=== PATIENT | male | born 1955 | race Caucasian/White ===

== ENCOUNTER 2018-06-02 17:53 | Inpatient (IN) | payer MEDICARE, BC ==
[2018-06-02 19:27] LABS: Basophils # (A) 0.1 k/uL (0-0.2); Basophils % (A) 1 %; Eosinophils # (A) 0.2 k/uL (0-0.7); Eosinophils % (A) 2 %; HCT 47.9 % (39.0-53.0); HGB 16.2 gm/dL (13.0-17.5); Lymphocytes # (A) 2.5 k/uL (1.0-4.8); Lymphocytes % (A) 23 %; MCH 33.4 pg (25.0-35.0); MCHC 33.8 g/dL (31.0-37.0); MCV 98.8 fL (80.0-100.0); Mean Platelet Volume 7.4; Monocytes # (A) 0.7 k/uL (0-1.0); Monocytes % (A) 6 %; Neutrophils # (A) 7.4 k/uL (1.3-7.7); Neutrophils % (A) 67 %; Platelet Count 205 k/uL (150-450); RBC 4.85 m/uL (4.30-5.90); RDW 12.1 % (11.5-15.5); WBC 11.1 k/uL (3.8-10.6)
[2018-06-02 19:36] LABS: Appearance,Urine Clear (Clear); Bilirubin,Urine Negative (Negative); Blood,Urine Negative (Negative); Color,Urine Yellow; Glucose,Urine (UA) Negative (Negative); Ketones,Urine Negative (Negative); Leukocyte Esterase,Urine Negative (Negative); Nitrite,Urine Negative (Negative); Protein,Urine Negative (Negative); Specific Gravity,Urine 1.014 (1.001-1.035); Urobilinogen,Urine <2.0 mg/dL (<2.0)
[2018-06-02 19:41] LABS: ALT 31 U/L (21-72); AST 32 U/L (17-59); Albumin 4.2 g/dL (3.5-5.0); Alkaline Phosphatase 39 U/L (38-126); Anion Gap 7 mmol/L; Blood Urea Nitrogen 14 mg/dL (9-20); Calcium 9.8 mg/dL (8.4-10.2); Carbon Dioxide 27 mmol/L (22-30); Chloride 104 mmol/L (98-107); Glucose 89 mg/dL (74-99); Potassium 4.5 mmol/L (3.5-5.1); Sodium 138 mmol/L (137-145); Total Bilirubin 0.7 mg/dL (0.2-1.3); Total Protein 7.4 g/dL (6.3-8.2)
--- NOTE | 2018-06-02 19:48 | ED ---
General Adult HPI - General Chief complaint: Extremity Problem,Nontraumatic Stated complaint: leg pain Time Seen by Provider: 06/02/18 18:04 Source: patient, EMS, RN notes reviewed Mode of arrival: EMS Limitations: no limitations - History of Present Illness Initial comments: 63-year-old male with a past medical history of prostate disorder, hypertension presents to the emergency department for a chief complaint of right lower extremity pain 2.5 months. Patient states this has been ongoing. He states this started in his lower back months ago and progressed to his right hip. Patient states he has noticed pain in his hip he went to [facility] and had a negative CAT scan done of the right hip at that time. Patient states that the pain has progressed into now his right leg, denies pain in the back or hip. He states the pain is in the posterior thigh. He describes the pain as a sharp pain radiating down his leg. He states when he stands too long he has pins and needles in his right leg. Patient states he saw Dr. Helm his primary today and was told to go to the emergency department for admission. He was told he should be admitted for an EMG and inpatient MRI. Patient states he could not follow up outpatient because he had significant pain when transporting to Dr. Pompa's office. He denies any bladder or bowel changes. He denies any fevers or chills. He denies weakness in the lower extremities. Patient has no other complaints at this time including shortness of breath, chest pain, abdominal pain, nausea or vomiting, headache, or visual changes. - Related Data Home Medications Medication Instructions Recorded Confirmed Atenolol [Tenormin] 50 mg PO DAILY 06/02/18 06/02/18 Cyclobenzaprine [Flexeril] 10 mg PO Q12H 06/02/18 06/02/18 Fluticasone Nasal [place] [Flonase 1 spray EA NOSTRIL DAILY 06/02/18 06/02/18 Nasal [place]] Gabapentin [Neurontin] 300 mg PO TID 06/02/18 06/02/18 HYDROcodone/APAP 7.5-325MG [[place] 2 tab PO Q8H PRN 06/02/18 06/02/18 7.5-325] Lisinopril [Zestril] 10 mg PO DAILY 06/02/18 06/02/18 Methocarbamol [Robaxin] 1,000 mg PO QID 06/02/18 06/02/18 Naloxone HCl [Narcan] 4 mg NASAL ONCE PRN 06/02/18 06/02/18 amLODIPine [Norvasc] 5 mg PO DAILY 06/02/18 06/02/18 fentaNYL 25MCG/HR PATCH [Duragesic 25 mcg TRANSDERM Q72H 06/02/18 06/02/18 25MCG/HR] Allergies Allergy/AdvReac Type Severity Reaction Status Date / Time Penicillins Allergy Unknown Verified 06/02/18 18:59 Review of Systems ROS Statement: Those systems with pertinent positive or pertinent negative responses have been documented in the HPI. ROS Other: All systems not noted in ROS Statement are negative. Past Medical History Past Medical History: Hypertension, Prostate Disorder Additional Past Medical History / Comment(s): diverticulits, insomnia, lower back pain, sialoadenitis, History of Any Multi-Drug Resistant Organisms: None Reported Past Surgical History: Back Surgery, Hernia Repair, Orthopedic Surgery, Tonsillectomy Additional Past Surgical History / Comment(s): cataracts Past Psychological History: No Psychological Hx Reported Smoking Status: Current every day smoker Past Alcohol Use History: Occasional Past Drug Use History: Marijuana General Exam Limitations: no limitations General appearance: alert, in no apparent distress Head exam: Present: atraumatic, normocephalic, normal inspection Eye exam: Present: normal appearance, PERRL, EOMI. Absent: scleral icterus, conjunctival injection, periorbital swelling ENT exam: Present: normal exam, mucous membranes moist Neck exam: Present: normal inspection, full ROM. Absent: tenderness, meningismus, lymphadenopathy Respiratory exam: Present: normal lung sounds bilaterally. Absent: respiratory distress, wheezes, rales, rhonchi, stridor Cardiovascular Exam: Present: regular rate, normal rhythm, normal heart sounds. Absent: systolic murmur, diastolic murmur, rubs, gallop, clicks GI/Abdominal exam: Present: soft, normal bowel sounds. Absent: distended, tenderness, guarding, rebound, rigid Extremities exam: Present: full ROM (Full range motion of the right hip and knee ), normal capillary refill (Happily refill less than 2 seconds and DP pulse 2+ in the right lower extremity), other (Incision intact in the right lower extremity). Absent: tenderness (No significant tenderness in the right lower extremity) Back exam: Absent: vertebral tenderness (No significant lumbar tenderness) Neurological exam: Present: alert, oriented X3, CN II-XII intact Psychiatric exam: Present: normal affect, normal mood Course Vital Signs 06/02/18 06/02/18 17:56 19:14 Temperature 97.0 F L Pulse Rate 58 L 62 Respiratory 18 18 Rate Blood Pressure 153/64 142/70 O2 Sat by Pulse 98 98 Oximetry Medical Decision Making - Medical Decision Making 63-year-old male presents to the emergency department for chief complaint of right lower extremity pain. According to Patient, he was sent in by Dr. Pompa for admission and further evaluation with inpatient EMG and MRI. Neurovascular is intact in the right lower extremity. Patient has full range motion of the right lower extremity. He did ambulate to the bathroom while here in the emergency department. He denies bladder or bowel changes, numbness of the lower extremities. He denies significant back pain at this time. CBC shows a white count of 11.1. CMP and urine unremarkable. Patient will be admitted to Dr. Castro for further evaluation which patient and family member agree with. - Lab Data Result diagrams: 06/02/18 19:08 06/02/18 19:08 Lab Results 06/02/18 06/02/18 06/02/18 Range/Units 19:08 19:08 19:08 WBC 11.1 H (3.8-10.6) k/uL RBC 4.85 (4.30-5.90) m/uL Hgb 16.2 (13.0-17.5) gm/dL Hct 47.9 (39.0-53.0) % MCV 98.8 (80.0-100.0) fL MCH 33.4 (25.0-35.0) pg MCHC 33.8 (31.0-37.0) g/dL RDW 12.1 (11.5-15.5) % Plt Count 205 (150-450) k/uL Neutrophils % 67 % Lymphocytes % 23 % Monocytes % 6 % Eosinophils % 2 % Basophils % 1 % Neutrophils # 7.4 (1.3-7.7) k/uL Lymphocytes # 2.5 (1.0-4.8) k/uL Monocytes # 0.7 (0-1.0) k/uL Eosinophils # 0.2 (0-0.7) k/uL Basophils # 0.1 (0-0.2) k/uL Sodium 138 (137-145) mmol/L Potassium 4.5 (3.5-5.1) mmol/L Chloride 104 (98-107) mmol/L Carbon Dioxide 27 (22-30) mmol/L Anion Gap 7 mmol/L BUN 14 (9-20) mg/dL Creatinine 0.70 (0.66-1.25) mg/dL Est GFR (CKD-EPI)AfAm >90 (>60 ml/min/1.73 sqM) Est GFR (CKD-EPI)NonAf >90 (>60 ml/min/1.73 sqM) Glucose 89 (74-99) mg/dL Calcium 9.8 (8.4-10.2) mg/dL Total Bilirubin 0.7 (0.2-1.3) mg/dL AST 32 (17-59) U/L ALT 31 (21-72) U/L Alkaline Phosphatase 39 (38-126) U/L Total Protein 7.4 (6.3-8.2) g/dL Albumin 4.2 (3.5-5.0) g/dL Urine Color Yellow Urine Appearance Clear (Clear) Urine pH 6.0 (5.0-8.0) Ur Specific [place] 1.014 (1.001-1.035) Urine Protein Negative (Negative) Urine Glucose (UA) Negative (Negative) Urine Ketones Negative (Negative) Urine Blood Negative (Negative) Urine Nitrite Negative (Negative) Urine Bilirubin Negative (Negative) Urine Urobilinogen <2.0 (<2.0) mg/dL Ur Leukocyte Esterase Negative (Negative) Disposition Clinical Impression: Right leg pain, Intractable pain Disposition: ADMITTED IP TO THIS HOSP Condition: Good Is patient prescribed a controlled substance at d/c from ED?: No Referrals: Navid Pompa MD [Primary Care Provider] - 1-2 days Time of Disposition: 19:48
[2018-06-02] MEDS ORDERED: MORPHINE SULFATE 4 MG/ML SYRINGE IVP STA (20:35)
[2018-06-02] MEDS ORDERED: NALOXONE 0.4 MG/ML 1 ML VIAL IV PRN (20:36)
[2018-06-02] MEDS ORDERED: ACETAMINOPHEN TAB 325 MG TAB PO PRN (20:36)
[2018-06-02] MEDS ORDERED: FLUTICASONE 50MCG/SPRAY NASAL 16GM EA NOSTRIL PRN (22:52)
[2018-06-02] MEDS: NICOTINE 21MG/24HR PATCH TRANSDERM SCH (23:10)
[2018-06-02] MEDS: SODIUM CHLORIDE 0.9% 1,000 ML IV SCH (23:10)
[2018-06-02] MEDS: HYDROmorphone 1 MG/ML 1 ML SYRINGE IVP PRN (23:41)
[2018-06-02] MEDS: METHOCARBAMOL 500 MG TAB PO PRN (23:58)
[2018-06-02] MEDS: methylPREDNISolone SOD SUCCI 40 MG/ML 1 ML VIAL IV SCH (23:58)
[2018-06-03] MEDS: NAPROXEN 250 MG TAB PO SCH ×3 (00:49→20:05)
[2018-06-03] MEDS: HYDROcodone/APAP 7.5-325MG 1 EACH TAB PO PRN ×3 (01:36→19:18)
[2018-06-03] MEDS: HYDROmorphone 1 MG/ML 1 ML SYRINGE IVP PRN ×6 (03:24→23:45)
--- NOTE | 2018-06-03 05:05 | HP ---
HISTORY AND PHYSICAL DATE OF ADMISSION: 06/02/2018 DATE OF SERVICE: 06/02/2018 PRESENTING COMPLAINT: Low back pain. HISTORY OF PRESENTING COMPLAINT: This is a 63-year-old patient of Dr. Pompa. Chronic stable medical conditions include hypertension, diverticulosis, insomnia. The patient has had low back pain problems several years. About 15 years ago, the patient did have a surgery for diskectomy that did not go well and patient has been having pain for that. The patient has been managed with medications by Dr. Pompa. Two and one half months ago patient's pain became more severe and started going down his right leg and progressed to get more severe. Hence patient presented to the hospital. The patient gets spasms and tautness of the back muscles and the right thigh. There is no involvement of bladder or the urine. Some trouble with walking. Hence patient was sent in for further workup. No fever. No chills. No recent back injury. REVIEW OF SYSTEMS: CONSTITUTIONAL: None. HEENT none. RESPIRATORY: Occasional shortness of breath. CARDIOVASCULAR none. GASTROINTESTINAL: None. GENITOURINARY none. MUSCULOSKELETAL as above. DERMATOLOGICAL, HEMATOLOGIC, LYMPHATIC: none. PSYCHIATRY none. NEUROLOGICAL none. PAST MEDICAL HISTORY: Asthma as a child, hypertension, diverticulitis, insomnia, lower back DJD, squamous cell cancer, hiatal hernia, C diff. PAST SURGICAL HISTORY: Back surgery 15 years ago, hernia repair, cataract, colonoscopy with polypectomy, umbilical hernia repair. Knee repair, skin cancer removed. SOCIAL HISTORY: The patient smoked close to 50 years, averaged about a pack a day, now down to half a pack a day. Does use marijuana. . FAMILY HISTORY: Of hypertension. HOME MEDICATIONS: 1. Narcan 4 mg p.r.n. 2. Robaxin 1000 mg p.o. q.i.d. 3. Zestril 10 mg p.o. daily. 4. Barre 7.5, 2 tablets p.o. q.8h p.r.n. 5. Neurontin 300 mg t.i.d. 6. Duragesic patch 25 q.72h hours. 7. Norvasc 5 mg p.o. daily. 8. Flexeril 10 mg p.o. q.12. 9. Tenormin 50 mg p.o. daily. ALLERGIES: PENICILLIN. EXAMINATION: VITAL SIGNS: Temp 97, pulse 58, respiration 18, blood pressure 153/64, pulse ox 98% on room air. GENERAL APPEARANCE: Average build, lying in bed, awake. EYES: Pupils equal. Conjunctivae normal. HEENT: External appearance of nose and ears normal. Oral cavity normal. NECK: JVD not raised. Mass not palpable. RESPIRATORY EFFORT: Normal. LUNGS: Diminished breath sounds. CARDIOVASCULAR: 1st and 2nd sounds, no edema. ABDOMEN: Soft, nontender. Liver and spleen not palpable. LYMPHATICS: No lymph nodes palpable in the neck and axilla. PSYCHIATRY: Alert and oriented x3. Mood and affect normal. NEUROLOGICAL: Pupils equal. Cranial nerves grossly intact. Reflexes in both the lower extremities equal, sensation grossly preserved. INVESTIGATIONS: White count 11.1, hemoglobin 16.2, potassium 4.5. UA negative. ASSESSMENT: 1. Acute on chronic lower back pain in a patient who had surgery 15 years ago, did not go well diskectomy, for two and one half months pain is much more severe with radiculopathic symptoms. There is no involvement of the bladder or the bowel. The patient did state that the last MRI probably 2 years ago did show diffuse disease at multiple levels. Most likely these are typically not amenable to surgery and have to be managed medically. We will get an MRI to check on the status. 2. The patient has got weakness in the ulnar distribution of the right hand. Being a smoker, we will rule out something like a Pancoast tumor. 3. Essential hypertension. 4. Chronic insomnia. PLAN: At this point, we will do a MRI of the lumbar spine, MRI of the cervical spine and CT scan of the chest with contrast. Home medications will be continued. Dr. Ulloa from [facility] has been consulted. We will also add a heating pad and IV Solu- Medrol. Care was discussed with the patient. Questions were answered. Copy to Dr. Pompa. MMLURDESL / CATALINAN: [id number] /
[2018-06-03] MEDS: SODIUM CHLORIDE 0.9% 1,000 ML IV SCH ×2 (06:24→07:39)
[2018-06-03] MEDS: METHOCARBAMOL 500 MG TAB PO PRN ×2 (06:24→17:19)
[2018-06-03] MEDS: methylPREDNISolone SOD SUCCI 40 MG/ML 1 ML VIAL IV SCH ×3 (07:37→23:53)
[2018-06-03] MEDS: ENOXAPARIN 40 MG/0.4 ML SYRINGE SQ SCH (07:37)
[2018-06-03] MEDS: NICOTINE 21MG/24HR PATCH TRANSDERM SCH (07:38)
[2018-06-03] MEDS: ATENOLOL 50 MG TAB PO SCH (07:39)
[2018-06-03] MEDS: LISINOPRIL 10 MG TAB PO SCH (07:39)
[2018-06-03] MEDS: GABAPENTIN 300 MG CAP PO SCH ×3 (07:39→21:37)
[2018-06-03] MEDS: amLODIPine 5 MG TAB PO SCH (07:39)
--- NOTE | 2018-06-03 12:43 | MR ---
EXAMINATION TYPE: MR begum/shellie wo con DATE OF EXAM: 06/03/2018 COMPARISON: 12/16/2012 HISTORY: r arm weakness in ulnar distribution TECHNIQUE: T1 and T2 axial and sagittal images of the lumbar spine are submitted. FINDINGS: There is no abnormal signal seen within the visualized spinal cord or paraspinal soft tissu es. Simple appearing renal cysts are noted there is thickening of the adrenal glands. Could not exclu de a complicated cyst involving the lower pole the left kidney. 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 At T12-L1 there is left paracentral broad-based disc bulging. No Canal stenosis. Neural foramina anant in patent. At L1-2 there is mild hypertrophic change of the facets. No disc herniation or canal stenosis. No for aminal encroachment. At L2-3 there is no disc herniation or canal stenosis. There is hyperdensity seen within the spinal c anal and T1 noncontrast imaging likely related to the filum terminale lipoma. Findings stable. At L3-4 there is degenerative disc disease with diffuse broad-based disc bulging and hypertrophy face ts and ligamentum flavum. Findings are mildly progressed suggestive of mild central stenosis. At L4-5 there is a broad-based disc bulging or protrusion with hypertrophic change of the facets and ligamentum flavum. There is bilateral foraminal encroachment. Anterior compression of the thecal sac. Mild central stenosis. At L5-S1 there is degenerative disc disease with facet arthropathy. There now appears to be a focal d isc herniation with extrusion extending posterior to the S1 segment of the right resulting in right-s ided nerve root compression. Is a new finding relative to the prior exam. 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 IMPRESSION: 1. There is a new right paracentral focal disc herniation with extrusion L5-S1 and compression of the right nerve root. Disc material extends posterior to the S1 vertebral segment. Correlation with post contrast imaging could be obtained for confirmation. 2. Multilevel degenerative disc disease with multilevel facet arthropathy and disc bulging resulting in multilevel foraminal encroachment and canal stenosis as discussed above. 3. A complicated cyst involving the lower pole the left kidney for which ultrasound or CT scan is sug gested. EXAMINATION TYPE: MR begum/shellie wo con DATE OF EXAM: 06/03/2018 COMPARISON: 12/16/2012 HISTORY: r arm weakness in ulnar distribution TECHNIQUE: T1 sagittal and coronal, T2 sagittal, and gradient echo axial views of the cervical spine are submitted. FINDINGS: The cranial cervical junction is preserved. There is no abnormal signal seen within the sp inal cord or paraspinal soft tissues. At C2-3 there is facet arthropathy but no canal stenosis or foraminal encroachment. No disc herniatio n. At C3-4 there is mild degenerative disc disease and uncovertebral joint hypertrophy. There is mild bi lateral foraminal encroachment with facet arthropathy but no focal herniation. At C4-5 there is degenerative disc disease with facet arthropathy and uncovertebral joint hypertrophy . Mild left foraminal encroachment. No canal stenosis or focal herniation. At C5-6 there is degenerative disc disease with bilateral uncovertebral joint hypertrophy greater on the right with moderate right foraminal encroachment and mild left foraminal encroachment. Findings a re similar to the prior exam. Mild central disc bulging is stable. At C6-7 there is severe degenerative disc disease with discogenic marrow changes which are slightly p rogressed from the prior exam. There is diffuse central disc bulging or small protrusion with no evid ence of canal stenosis. Facet arthropathy and uncovertebral joint hypertrophy result in moderate to s evere bilateral foraminal encroachment. At C7-T1 there is uncovertebral joint hypertrophy on the left but no canal stenosis or foraminal encr oachment. There is degenerative disc disease. Incidental note made of a partially empty sella turcica. IMPRESSION: 1. Multilevel degenerative disc disease with mild progression at C5-C6. Foraminal encroachment and d isc bulging as discussed above. 2. Stable disc bulging C6-C7 capped by osteophytic spur but no definite canal stenosis. Multilevel fo raminal encroachment as discussed above.
--- NOTE | 2018-06-03 12:47 | CT ---
EXAMINATION TYPE: CT chest w con DATE OF EXAM: 06/03/2018 COMPARISON: None HISTORY: Hx of smoking, r/o pancoast tumor CT DLP: 378.4 mGycm, Automated exposure control for dose reduction was used. CONTRAST: Performed injected with 100 mL of Isovue 300. TECHNIQUE: Axial images were obtained at 5 mm thick sections. Reconstructed images are reviewed on [employer] computer in the coronal plane. FINDINGS: Portion of the thyroid visualized is normal. No suspicious lung nodules or focal infiltrates are present. Specifically, no suspicious scarring or significant thickening at the lung apices is evident suggest Pancoast tumor. There is a small area of apparent scarring along the left major fissure. Series 4 image 25. This measures 0.7 cm. This can be followed. There is a tiny 0.3 cm density within the right middle lobe. Series 4 image 30 there is a 0.4 cm faint density within the right middle lobe. Series 4 image 38. A 0.4 cm subtle densities withi n the lingula. Series 4 image 46. No enlarged mediastinal or hilar adenopathy is evident. The ascending aorta diameter at the level o f the main pulmonary artery is 3.4 cm. The main pulmonary artery diameter at the bifurcation is 2.[address] sections are obtained through the upper abdomen. Abdomen is essentially unremarkable. IMPRESSIONS: 1. Few small areas of pneumonitis change or tiny nodules. Recommend follow-up CT chest in 6 months. 2. No suspicious changes to suggest Pancoast tumor.
[2018-06-03] MEDS ORDERED: LACTULOSE 20 GM/30 ML CUP PO ONE (13:44)
[2018-06-03] MEDS: SENNOSIDES-DOCUSATE SODIUM 1 EACH TAB PO SCH (13:59)
--- NOTE | 2018-06-03 17:07 | P.CNOR ---
History of Present Illness - [facility] Consult date: 06/03/18 Requesting physician: aCm Florez Consult reason: low back pain, other (Right lower extremity radiculopathy) History of present illness: Patient is a very pleasant 63-year-old male who is seen and examined at the bedside for consultation placed for right lower extremity radiculopathy. Patient states with the past 2-1/2 months he has had pain in the lumbar spine radiating towards the right posterior hip. He presented to [facility] for further evaluation approximately 2 months ago. He states imaging of his lumbar spine and right hip were taken at that time without evidence of significant change to his lumbar spine or evidence of fracture and his right hip. Since that time he has continued to deal with his pain. He feels his pain is progressing is now radiating down the right posterior thigh, to the calf , and towards the foot. He has significant difficulty with sitting and ambulation. He is unable to stand longer than 10 minutes as it causes severe pain down the right lower extremity. He does have a history of previous lumbar surgical intervention of a laminectomy and decompression performed [address] Greer. He states at that time he did not have significant relief of his symptoms following surgical intervention. Over the years he has had treatment with Dr. Mckeon in pain management and has undergone epidural injections. These injections do provide relief of symptoms for approximately 11 days. He denies any recent injuries. He denies any lower extremity weakness bilaterally. He denies any left lower extremity radiculopathy. He is been following was primary care provider. He states he has been taking Solway and using a fentanyl patch without significant improvement of symptoms. Presented to the hospital yesterday for admittance after recommendation by his primary care provider. Nursing states he is currently scheduled to have an MRI of the lumbar spine today as well as a CT of the chest. Patient states he is unsure why he is having a CT performed. CT order states CT to rule out Pancoast tumor and the patient is a smoker. Patient states he has lost weight over the past few weeks but feels this is due to his inability to ambulate and take care of himself. He states he took a shower today which was significantly difficult for him. He states he is been also past 2 weeks lying in bed. Patient is currently receiving Solu-Medrol IV and does not feel his symptoms have significantly changed since his admission. Patient states at the bedside is expecting to be seen and examined by pain management as this was discussed with him. . Past Medical History Past Medical History: Asthma, Cancer, Hypertension Additional Past Medical History / Comment(s): asthma as child,diverticulits, when younger had insomnia, lower back pain, ddd, hc c-diff 2011 or 2012 in [facility] ,past squamous cell skin ca(removed), hiatal hernia /past gerd but changed diet added fiber and no longer has problem,"has numbness rt hand 4th and 5th digit and if stands too long -rt leg gets pins/needles and numbness History of Any Multi-Drug Resistant Organisms: C-DIFF Year Discovered:: 2005 or 2006 in [facility] MDRO Source:: stool Past Surgical History: Back Surgery, Hernia Repair, Orthopedic Surgery, Tonsillectomy Additional Past Surgical History / Comment(s): cataracts, colonoscopy/ polypectomt(benign), umb hernia repair, knee repair (pt unsure which knee), wisdom teeth extracted, skin ca removed Past Anesthesia/Blood Transfusion Reactions: Previous Problems w/ Anesthesia Additional Past Anesthesia/Blood Transfusion Reaction / Comm: after one sx needed and idc forawhile Smoking Status: Current every day smoker - Past Family History Father Family Medical History: Hypertension Additional Family Medical History / Comment(s): had maleria when in [facility] Mother Family Medical History: Cancer, Dialysis, Renal Disease Additional Family Medical History / Comment(s): esrd/dialysis and liver cancer Medications and Allergies Home Medications Medication Instructions Recorded Confirmed Type Atenolol [Tenormin] 50 mg PO DAILY 06/02/18 06/02/18 History Cyclobenzaprine [Flexeril] 10 mg PO Q12H 06/02/18 06/02/18 History Fluticasone Nasal [place] [Flonase 1 spray EA NOSTRIL DAILY 06/02/18 06/02/18 History Nasal [place]] Gabapentin [Neurontin] 300 mg PO TID 06/02/18 06/02/18 History HYDROcodone/APAP 7.5-325MG [[place] 2 tab PO Q8H PRN 06/02/18 06/02/18 History 7.5-325] Lisinopril [Zestril] 10 mg PO DAILY 06/02/18 06/02/18 History Methocarbamol [Robaxin] 1,000 mg PO QID 06/02/18 06/02/18 History Naloxone HCl [Narcan] 4 mg NASAL ONCE PRN 06/02/18 06/02/18 History amLODIPine [Norvasc] 5 mg PO DAILY 06/02/18 06/02/18 History fentaNYL 25MCG/HR PATCH [Duragesic 25 mcg TRANSDERM Q72H 06/02/18 06/02/18 History 25MCG/HR] Allergies Allergy/AdvReac Type Severity Reaction Status Date / Time Penicillins Allergy Unknown Verified 06/02/18 18:59 Physical Examination Physical exam: Patient is awake, alert, and oriented 3 Vital signs stable Good chest excursion with deep inspiration and expiration Abdomen soft nontender Examination of lumbar spine reveals skin is intact with no abrasions, lacerations, or bruises; no erythema, purulence or signs of infection Evidence of a well-healed incision along the midline of the lower lumbar spine No significant significant pain with palpation of the lumbar spine Dorsiflexion, plantarflexion, and extensor hallucis longus positive sustained bilaterally Lower extremity strength 5/5 bilaterally No lower extremity hyperreflexia bilaterally Straight leg test negative bilateral lower extremities Negative Lasegue's test bilaterally No signs or symptoms of DVT; no calf pain No pain with internal and external rotation of the hips bilaterally Neurovascularly intact Chronic skin changes of the bilateral feet Results - Labs Labs: Abnormal Lab Results - Last 24 Hours (Table) 06/02/18 Range/Units 19:08 WBC 11.1 H (3.8-10.6) k/uL H & H 06/02/18 Range/Units 19:08 Hgb 16.2 (13.0-17.5) gm/dL Hct 47.9 (39.0-53.0) % Result Diagrams: 06/02/18 19:08 06/02/18 19:08 Assessment and Plan Assessment: Assessment: Right lower extremity radiculopathy Inability to ambulate due to pain Low back pain Current smoker History of previous laminectomy decompression performed 15 years ago History of hypertension (1) Lumbar back pain with radiculopathy affecting right lower extremity Current Visit: Yes Status: Acute Code(s): M54.16 - RADICULOPATHY, LUMBAR REGION SNOMED Code(s): 734930224 (2) Unable to ambulate Current Visit: Yes Status: Acute Code(s): R26.2 - DIFFICULTY IN WALKING, NOT ELSEWHERE CLASSIFIED SNOMED Code(s): 251359220 (3) Current smoker Current Visit: Yes Status: Acute Code(s): F17.200 - NICOTINE DEPENDENCE, UNSPECIFIED, UNCOMPLICATED SNOMED Code(s): 53688375 (4) History of hypertension Current Visit: Yes Status: Acute Code(s): Z86.79 - PERSONAL HISTORY OF OTHER DISEASES OF THE CIRCULATORY SYSTEM SNOMED Code(s): 015319992 (5) Intractable pain Current Visit: Yes Status: Acute Code(s): R52 - PAIN, UNSPECIFIED SNOMED Code(s): 68636426 Plan: Plan: 1. Patient has had ongoing and worsening right lower extremity radiculopathy of the past 2 months without known injury. His symptoms are debilitating he has significant difficulty with sitting, standing, or walking. He spent most of the past 2-1/2 weeks lying in bed. At this time, MRI lumbar spine will be performed. We'll plan to follow up with further recommendations following the MRI results. We did discuss at the bedside he could be a candidate for treatment with pain management, physical therapy, with the possibility of surgical intervention. We will discuss treatment in greater detail depending on the results of his imaging. We will continue to follow patient closely 2. Patient will continue to be seen and examined by medicine; medicine is also ordered a CT of the chest with contrast due to patient's smoking history with weakness at the ulnar distribution of the right hand in which they are trying to rule out Pancoast tumor 3. Patient waiting for consultation with pain management 4. Continue pain control with medications as prescribed including Solway and Dilaudid; patient may continue with Solu-Medrol as prescribed by medicine Time with Patient: Less than 30
[2018-06-04] MEDS: METHOCARBAMOL 500 MG TAB PO PRN ×4 (00:34→22:08)
--- NOTE | 2018-06-04 00:41 | PN ---
PROGRESS NOTE DATE OF SERVICE: 06/03/2018 PRESENTING COMPLAINT: Back pain. INTERVAL HISTORY: This patient was seen by me earlier today with acute on chronic lower back pain. Dr. Chiang was consulted. I did see the results after I had seen the patient earlier today. The patient's pain is somewhat better, awaiting further input by Dr. Chiang. I had a long talk about the patient about different other non allopathic pain control modalities. Overall patient feels better. REVIEW OF SYSTEMS: Done for constitutional, cardiovascular, GI, pulmonary, musculoskeletal and relevant findings as above. CURRENT MEDICATIONS: Reviewed that include for pain, Duragesic patch, Neurontin, [place], Robaxin, IV Solu- Medrol, naproxen and IV fluids. PHYSICAL EXAMINATION: VITAL SIGNS: Temperature 97.8, pulse 72, respiration 16, blood pressure 137/64, pulse ox 97% on room air. GENERAL APPEARANCE: Is lying in bed, awake, more comfortable. EYES: Pupils are normal. Conjunctivae normal. NECK: JVD not raised. Mass not palpable. RESPIRATORY: Effort normal. LUNGS: Are clear. CARDIOVASCULAR: 1st and 2nd sounds normal. No edema. ABDOMEN: Soft, nontender. Liver and spleen not palpable. PSYCHIATRY: Alert and oriented x3. Mood and affect normal. INVESTIGATIONS: CT scan of the chest, nonspecific, questionable small nodules, cervical lumbar spine MRI showing herniated disc at multiple levels and severe DJD. ASSESSMENT: 1. Acute on chronic low back pain with prior surgery showing DJD at multiple levels and herniated disc at multiple levels. Dr. Chiang was consulted. The patient's pain is actually better controlled with current cocktail of medication. Did actually ask him to scale back on some of the narcotics. It would be very beneficial in the long run. 2. Essential hypertension. 3. Constipation from probably taking narcotics. 4. Chronic insomnia. 5. Essential hypertension. PLAN: I had a long talk with the patient and told her to look at other modalities of pain medication. Also, you may consider looking at the Pain Services for local nerve ablation. We will await in the meantime, see what Dr. Chiang has to offer, if there is any surgical option. The disease process is rather diffuse at multiple levels, which makes surgery less useful, but will let Dr. Chiang determine the same. Did explain to the patient that my colleagues will be covering me when I am away from tomorrow. MMODL / LILIA: [id number] /
[2018-06-04] MEDS: SODIUM CHLORIDE 0.9% 1,000 ML IV SCH ×3 (02:45→22:35)
[2018-06-04] MEDS: HYDROcodone/APAP 7.5-325MG 1 EACH TAB PO PRN ×3 (03:13→22:00)
[2018-06-04] MEDS: ENOXAPARIN 40 MG/0.4 ML SYRINGE SQ SCH (08:20)
[2018-06-04] MEDS: SENNOSIDES-DOCUSATE SODIUM 1 EACH TAB PO SCH (08:20)
[2018-06-04] MEDS: ATENOLOL 50 MG TAB PO SCH (08:21)
[2018-06-04] MEDS: GABAPENTIN 300 MG CAP PO SCH ×3 (08:21→20:34)
[2018-06-04] MEDS: LISINOPRIL 10 MG TAB PO SCH (08:21)
[2018-06-04] MEDS: NICOTINE 21MG/24HR PATCH TRANSDERM SCH (08:21)
[2018-06-04] MEDS: NAPROXEN 250 MG TAB PO SCH (08:21)
[2018-06-04] MEDS: amLODIPine 5 MG TAB PO SCH (08:21)
[2018-06-04] MEDS: predniSONE 20 MG TAB PO SCH (08:21)
[2018-06-04] MEDS ORDERED: methylPREDNISolone SOD SUCCI 125 MG/2 ML VIAL IV STA (08:27)
[2018-06-04] MEDS: HYDROmorphone 1 MG/ML 1 ML SYRINGE IVP PRN ×4 (08:34→22:01)
--- NOTE | 2018-06-04 08:36 | P.CNOR ---
History of Present Illness - [facility] Consult date: 06/04/18 Consult reason: low back pain, other (Right lower extremity radiculopathy) History of present illness: Patient is seen and examined at bedside. He is 63-year-old pleasant man who has had long-standing history of lumbar issues. He had lumbar surgery in the past with laminectomy discectomy at L5-S1 approximately [address] Cooney. 3. He had done well with this but has had recurrence of his symptoms in his right lower extremity over similar distribution. He has had chronic issues with his low back and lower extremities over the years but it has worsened significantly over the past couple of months. He says a few years ago he had injections and they helped for several days but he still requires regular pain medication. He is retired. He is normally a community ambulator. Review of Systems Denies fevers chills or night sweats. He has pain at the right lower extremity to the back of his thigh and toward the back of his calf. He is not having problems in his left lower extremity. He has no abdominal pain. He has Chronic low back pain. No changes in his neck or upper extremity. Past Medical History Past Medical History: Asthma, Cancer, Hypertension Additional Past Medical History / Comment(s): asthma as child,diverticulits, when younger had insomnia, lower back pain, ddd, hc c-diff 2011 or 2012 in [facility] ,past squamous cell skin ca(removed), hiatal hernia /past gerd but changed diet added fiber and no longer has problem,"has numbness rt hand 4th and 5th digit and if stands too long -rt leg gets pins/needles and numbness History of Any Multi-Drug Resistant Organisms: C-DIFF Year Discovered:: 2005 or 2006 in [facility] MDRO Source:: stool Past Surgical History: Back Surgery, Hernia Repair, Orthopedic Surgery, Tonsillectomy Additional Past Surgical History / Comment(s): History laminectomy decompression with discectomy at L5-S1 on the right 15 years ago, cataracts, colonoscopy/polypectomt(benign), umb hernia repair, knee repair (pt unsure which knee), wisdom teeth extracted, skin ca removed Past Anesthesia/Blood Transfusion Reactions: Previous Problems w/ Anesthesia Additional Past Anesthesia/Blood Transfusion Reaction / Comm: after one sx needed and idc forawhile Smoking Status: Current every day smoker - Past Family History Father Family Medical History: Hypertension Additional Family Medical History / Comment(s): had maleria when in [facility] Mother Family Medical History: Cancer, Dialysis, Renal Disease Additional Family Medical History / Comment(s): esrd/dialysis and liver cancer Medications and Allergies Home Medications Medication Instructions Recorded Confirmed Type Atenolol [Tenormin] 50 mg PO DAILY 06/02/18 06/02/18 History Cyclobenzaprine [Flexeril] 10 mg PO Q12H 06/02/18 06/02/18 History Fluticasone Nasal [place] [Flonase 1 spray EA NOSTRIL DAILY 06/02/18 06/02/18 History Nasal [place]] Gabapentin [Neurontin] 300 mg PO TID 06/02/18 06/02/18 History HYDROcodone/APAP 7.5-325MG [[place] 2 tab PO Q8H PRN 06/02/18 06/02/18 History 7.5-325] Lisinopril [Zestril] 10 mg PO DAILY 06/02/18 06/02/18 History Methocarbamol [Robaxin] 1,000 mg PO QID 06/02/18 06/02/18 History Naloxone HCl [Narcan] 4 mg NASAL ONCE PRN 06/02/18 06/02/18 History amLODIPine [Norvasc] 5 mg PO DAILY 06/02/18 06/02/18 History fentaNYL 25MCG/HR PATCH [Duragesic 25 mcg TRANSDERM Q72H 06/02/18 06/02/18 History 25MCG/HR] Allergies Allergy/AdvReac Type Severity Reaction Status Date / Time Penicillins Allergy Unknown Verified 06/02/18 18:59 Physical Examination Osteopathic Statement: *. No significant issues noted on an osteopathic structural exam other than those noted in the History and Physical/Consult. - L Spine: dermatomal strength & reflexes right Strength: hip flexion: 5/5 (At the right lower extremity has positive straight leg raise. His positively stakes sign. He has sustained dorsal flexion plantarflexion and EHL. He seems to have 5 out of 5 strength plantarflexion. His back has a well-healed midline incision. His left lower extremity is good active passive range motion with good strength. Abdomen soft nontender chest is good excursion deep inspiration and expiration upper extremity. 5 strength neck is nontender to palpation range of motion) Results - Labs Labs: H & H 06/02/18 Range/Units 19:08 Hgb 16.2 (13.0-17.5) gm/dL Hct 47.9 (39.0-53.0) % Result Diagrams: 06/02/18 19:08 06/02/18 19:08 - Diagnostic results Lumbar MRI with/without contrast: report reviewed, image reviewed (I reviewed the new lumbar MRI. He has a history of prior laminectomy and decompression with discectomy at L5-S1. It appears to be on the right. He has significant disc height loss L5-S1 with some Modic endplate changes. There is a disc herniation at L5-S1 with extruded fragment on the right causing right foraminal stenosis.) Assessment and Plan Assessment: Herniated nucleus pulposis L5-S1, recurrent Right lower extremity radiculopathy Intractable low back pain and right lower extremity radicular pain History of laminectomy decompression L5-S1 with progressive disc degeneration Plan: Herniated nucleus pulposis L5-S1, recurrent Right lower extremity radiculopathy Intractable low back pain and right lower extremity radicular pain History of laminectomy decompression L5-S1 with progressive disc degeneration The patient is having severe pain in his right lower extremity due to a disc herniation L5-S1. This appears to be recurrent disc herniation at that level and is causing significant stenosis with extruded fragment. He has had persistent issues with his low back in the past and has had some short-term relief with interventional pain management and conservative care. I would like to see if he makes some benefit with aggressive conservative treatment at this time with IV followed by oral steroids and possibly with interventional pain management for repeat epidural steroid injection. Is difficult to predict if further interventional pain management will give him lasting benefit, but his other option would be to pursue surgical intervention. I think the patient is a good candidate for surgical intervention. We discussed possibly surgery and I think that the best surgical option for him would be revision decompression with fusion at L5-S1. He states that he is not interested in pursuing surgery at this point and would like to see if he can make some progress with further conservative care. We will have interventional pain management see him and give him an increased dose of IV steroids followed by his oral steroid. We'll have physical therapy see him to try to see if he can mobilize with her without a cane. If he is able to mobilize adequately he was okay for him to be home and to follow closely as an outpatient in the next 1-2 weeks for further treatment and possible discussion of surgical intervention if he is not improving. I discussed this with him answers questions and he is agreeable.
--- NOTE | 2018-06-04 10:21 | P.GSCN ---
History of Present Illness Consult date: 06/04/18 History of present illness: The patient is a 63-year-old gentleman who was brought in the hospital because of persistent back pain with immobilization. He had back surgery 10 years ago and apparently it has now ruptured another lumbar disc. He is been having difficulty walking. He has severe sciatica. He is in the hospital for pain control and further evaluation. During an MRI of the lumbar spine it was noted that he had a complex cyst in the lower pole of the left kidney and for this reason we're asked see the patient. He is interviewed at the bedside. He is awake alert oriented. This is the first he is aware of this complex cystoscopy. He has not had previous x-rays to his knowledge to assess this. He has no flank pain. He has not had previous urologic surgery. He has had no hematuria or urinary tract infections. There is no history kidney stones. Review of Systems - Constitutional Reports chronic pain - Genitourinary Reports as per HPI - Musculoskeletal Reports as per HPI Past Medical History Past Medical History: Asthma, Cancer, Hypertension Additional Past Medical History / Comment(s): asthma as child,diverticulits, when younger had insomnia, lower back pain, ddd, hc c-diff 2011 or 2012 in [facility] ,past squamous cell skin ca(removed), hiatal hernia /past gerd but changed diet added fiber and no longer has problem,"has numbness rt hand 4th and 5th digit and if stands too long -rt leg gets pins/needles and numbness History of Any Multi-Drug Resistant Organisms: C-DIFF Year Discovered:: 2005 or 2006 in [facility] MDRO Source:: stool Past Surgical History: Back Surgery, Hernia Repair, Orthopedic Surgery, Tonsillectomy Additional Past Surgical History / Comment(s): History laminectomy decompression with discectomy at L5-S1 on the right 15 years ago, cataracts, colonoscopy/polypectomt(benign), umb hernia repair, knee repair (pt unsure which knee), wisdom teeth extracted, skin ca removed Past Anesthesia/Blood Transfusion Reactions: Previous Problems w/ Anesthesia Additional Past Anesthesia/Blood Transfusion Reaction / Comm: after one sx needed and idc forawhile Smoking Status: Current every day smoker - Past Family History Father Family Medical History: Hypertension Additional Family Medical History / Comment(s): had maleria when [place] Mother Family Medical History: Cancer, Dialysis, Renal Disease Additional Family Medical History / Comment(s): esrd/dialysis and liver cancer Medications and Allergies Home Medications Medication Instructions Recorded Confirmed Type Atenolol [Tenormin] 50 mg PO DAILY 06/02/18 06/02/18 History Cyclobenzaprine [Flexeril] 10 mg PO Q12H 06/02/18 06/02/18 History Fluticasone Nasal [place] [Flonase 1 spray EA NOSTRIL DAILY 06/02/18 06/02/18 History Nasal [place]] Gabapentin [Neurontin] 300 mg PO TID 06/02/18 06/02/18 History HYDROcodone/APAP 7.5-325MG [[place] 2 tab PO Q8H PRN 06/02/18 06/02/18 History 7.5-325] Lisinopril [Zestril] 10 mg PO DAILY 06/02/18 06/02/18 History Methocarbamol [Robaxin] 1,000 mg PO QID 06/02/18 06/02/18 History Naloxone HCl [Narcan] 4 mg NASAL ONCE PRN 06/02/18 06/02/18 History amLODIPine [Norvasc] 5 mg PO DAILY 06/02/18 06/02/18 History fentaNYL 25MCG/HR PATCH [Duragesic 25 mcg TRANSDERM Q72H 06/02/18 06/02/18 History 25MCG/HR] Allergies Allergy/AdvReac Type Severity Reaction Status Date / Time Penicillins Allergy Unknown Verified 06/02/18 18:59 Surgical - Exam Vital Signs Temp Pulse Resp BP Pulse Ox 97.0 F L 58 L 18 153/64 98 06/02/18 17:56 06/02/18 17:56 06/02/18 17:56 06/02/18 17:56 06/02/18 17:56 - General well developed, well nourished, moderate distress - Eyes PERRL - ENT no hearing loss - Neck trachea midline - Respiratory normal expansion, normal respiratory effort - Cardiovascular Rhythm: regular - Abdomen Abdomen: non tender - Neurologic normal coordination, normal sensation - Musculoskeletal Patient is having a difficult time walking due to his back pain. - Psychiatric oriented to time, oriented to person, oriented to place, speech is normal, memory intact Results - Labs 06/02/18 19:08 06/02/18 19:08 - Imaging CT scan - abdomen: report reviewed, image reviewed Assessment and Plan Assessment: Impression: Acute lumbosacral disc issues requiring admission and pain control. Coincidentally identified atypical left renal cyst lower pole (3 cm) Recommendations: The patient will need a computed tomography scan of the abdomen with and without contrast to try to clarify the status of this cyst (to see if it may be malignant or benign.) This can be done as an outpatient or if he is completely immobilized here while he is in the hospital. I'll follow this patient with you.
[2018-06-04] MEDS: POLYETHYLENE GLYCOL 3350 17 GM POWD.PACK PO SCH (12:45)
--- NOTE | 2018-06-04 13:27 | P.PN ---
Subjective Progress Note Date: 06/04/18 Principal diagnosis: Acute on chronic low back pain Mr. Dang is a 63-year-old male with a past medical history of chronic low back pain, hypertension admitted to the hospital with a chief complaint of acute exacerbation of chronic low back pain. Patient had been evaluated by orthopedic services and currently his pain is marginally controlled. Patient had an MRI of the lumbar sprain done which was showing complex cyst in the lower pole of the left kidney and so urological services have been consulted. Today patient is lying in bed appears to be in mild discomfort due to ongoing low back pain. Patient states that his pain is 5 out of 10 controlled marginally with the pain regimen. Patient denies having any bowel or bladder incontinence. He has tingling and numbness on walking for a few minutes but going up to the bathroom he does not have any issues. Patient denies having any fever chills or rigors. No chest pain or palpitations. No cough or difficulty in breathing. No dysuria or hematuria. No abdominal pain nausea vomiting or diarrhea. Objective - Vital Signs Vital signs: Vital Signs Temp 97.6 F 06/04/18 05:55 Pulse 67 06/04/18 05:55 Resp 16 06/04/18 05:55 BP 130/64 06/04/18 05:55 Pulse Ox 92 L 06/04/18 05:55 Intake & Output 06/03/18 06/04/18 06/04/18 18:59 06:59 18:59 Intake Total 480 Balance 480 Intake: Oral 480 Other: # Voids 2 3 - Exam GENERAL EXAM GEN. APPEARANCE: Mild discomfort HEAD EXAM: No pallor no icterus NECK EXAM: No JVD, no thyromegaly RESPIRATORY EXAM: Bilateral breath sounds are positive. No wheeze or crackles. CARDIOVASCULAR EXAM: S1 and S2 heard. GI/ABDOMINAL EXAM: Soft, nontender, bowel sounds positive. EXTREMITIES EXAM: No edema in bilateral lower extremities NEUROLOGICAL EXAM: alert, oriented X3, focal neurological deficits. - Labs CBC & Chem 7: 06/02/18 19:08 06/02/18 19:08 Assessment and Plan Assessment: ASSESSMENT Acute on chronic low back pain Essential hypertension Left renal cyst in the lower pole Obstipation secondary to narcotics Chronic insomnia Plan: Orthopedic surgery has been consulted and they suggested to continue with pain management as they think surgery would be less useful because of the disease process is at multiple levels. So currently the patient is being managed with pain medications and pain service consult is pending until Wednesday morning. Urology has evaluated the patient for the left renal cyst and suggested to get a CT of the abdomen and pelvis with and without contrast that has been ordered today. We'll continue with the rest of his medical management and further recommendations to follow depending on the progress of the patient.
[2018-06-04] MEDS: IOPAMIDOL-300 CONTRAST 30 ML VIAL (ORAL USE) PO PRN ×2 (15:15→15:58)
--- NOTE | 2018-06-04 17:16 | CT ---
EXAMINATION TYPE: CT abdomen pelvis wo/w con DATE OF EXAM: 06/04/2018 COMPARISON: None HISTORY: Abnormal MRI, renal cysts. CT DLP: 1429.3 mGycm Automated exposure control for dose reduction was used. TECHNIQUE: Helical acquisition of images was performed from the lung bases through the pelvis. CONTRAST: Performed with Oral Contrast and without and with IV Contrast, patient injected with 100 mL of Isovue 300. FINDINGS: The lung bases are clear. There is no pleural effusion. Stomach appears normal. Liver shows no focal defect. Bile ducts are not dilated. Gallbladder appears normal. Spleen appears normal. There is no pa ncreatic mass. There is no adrenal mass. Kidneys have normal size. There are 2 cortical cysts on the left kidney. These measure 3.5 cm and 3 cm. The wall appears thin. I do not see evidence for solid re nal mass. There is no hydronephrosis. Ureters are not dilated. There is no retroperitoneal adenopathy . Bladder distends smoothly. There is no free fluid in the pelvis. There are multiple sigmoid diverticu la. There is no sign of diverticulitis. There is no inguinal hernia. I see no evidence of a pelvic ma ss. Appendix appears normal. There is no mesenteric edema or adenopathy. There are spondylotic change s in the lumbar spine. IMPRESSION: NO SIGN OF ACUTE ABDOMEN AND PELVIS. MILD SIGMOID DIVERTICULOSIS. THERE ARE CORTICAL CYST ON THE LOWE R POLE LEFT KIDNEY THAT APPEAR TO BE SIMPLE. NO EVIDENCE OF A SUSPICIOUS RENAL MASS.
[2018-06-05] MEDS: HYDROmorphone 1 MG/ML 1 ML SYRINGE IVP PRN ×7 (00:52→23:18)
[2018-06-05] MEDS: METHOCARBAMOL 500 MG TAB PO PRN ×4 (04:29→23:19)
[2018-06-05] MEDS: HYDROcodone/APAP 7.5-325MG 1 EACH TAB PO PRN ×2 (05:53→16:43)
[2018-06-05] MEDS: ATENOLOL 50 MG TAB PO SCH (08:21)
[2018-06-05] MEDS: amLODIPine 5 MG TAB PO SCH (08:21)
[2018-06-05] MEDS: SENNOSIDES-DOCUSATE SODIUM 1 EACH TAB PO SCH (08:21)
[2018-06-05] MEDS: GABAPENTIN 300 MG CAP PO SCH ×3 (08:21→21:46)
[2018-06-05] MEDS: predniSONE 20 MG TAB PO SCH (08:21)
[2018-06-05] MEDS: NICOTINE 21MG/24HR PATCH TRANSDERM SCH (08:21)
[2018-06-05] MEDS: POLYETHYLENE GLYCOL 3350 17 GM POWD.PACK PO SCH (08:21)
[2018-06-05] MEDS: LISINOPRIL 10 MG TAB PO SCH (08:21)
[2018-06-05] MEDS: ENOXAPARIN 40 MG/0.4 ML SYRINGE SQ SCH (08:22)
[2018-06-05 08:23] LABS: Basophils % (A) 0 %; Eosinophils # (A) 0.1 k/uL (0-0.7); Eosinophils % (A) 1 %; HCT 44.7 % (39.0-53.0); HGB 15.1 gm/dL (13.0-17.5); Lymphocytes # (A) 2.5 k/uL (1.0-4.8); Lymphocytes % (A) 15 %; MCH 33.9 pg (25.0-35.0); MCHC 33.7 g/dL (31.0-37.0); MCV 100.7 fL (80.0-100.0); Mean Platelet Volume 7.7; Monocytes # (A) 0.9 k/uL (0-1.0); Monocytes % (A) 5 %; Neutrophils % (A) 78 %; Platelet Count 218 k/uL (150-450); RBC 4.44 m/uL (4.30-5.90); RDW 12.2 % (11.5-15.5); WBC 16.8 k/uL (3.8-10.6)
[2018-06-05 08:38] LABS: Anion Gap 6 mmol/L; Blood Urea Nitrogen 12 mg/dL (9-20); Calcium 9.7 mg/dL (8.4-10.2); Carbon Dioxide 29 mmol/L (22-30); Chloride 105 mmol/L (98-107); Glucose 85 mg/dL (74-99); Potassium 4.9 mmol/L (3.5-5.1); Sodium 140 mmol/L (137-145)
[2018-06-05] MEDS: SODIUM CHLORIDE 0.9% 1,000 ML IV SCH ×2 (10:55→18:49)
--- NOTE | 2018-06-05 11:30 | P.PN ---
Subjective Progress Note Date: 06/05/18 Principal diagnosis: Acute on chronic low back pain Mr. Dang is a 63-year-old male with a past medical history of chronic low back pain, hypertension admitted to the hospital with a chief complaint of acute exacerbation of chronic low back pain. Patient had been evaluated by orthopedic services and currently his pain is marginally controlled. Patient had an MRI of the lumbar sprain done which was showing complex cyst in the lower pole of the left kidney and so urological services have been consulted. On 06/05/18 - Today patient is sleeping in his bed comfortably. Patient states that his pain is 6/10 controlled marginally with the pain regimen. Patient denies having any bowel or bladder incontinence. He has tingling and numbness on walking for a few minutes but going up to the bathroom he does not have any issues. On review of systems Constitutional -Patient denies having any fever chills or rigors. Cardiovascular -No chest pain or palpitations. Respiratory -No cough or difficulty in breathing. -No dysuria or hematuria. GI -No abdominal pain nausea vomiting or diarrhea. Objective - Vital Signs Vital signs: Vital Signs Temp 97.8 F 06/05/18 07:25 Pulse 56 L 06/05/18 07:25 Resp 16 06/05/18 07:25 BP 126/85 06/05/18 07:25 Pulse Ox 95 06/05/18 07:25 Intake & Output 06/04/18 06/05/18 06/05/18 18:59 06:59 18:59 Intake Total 900 Balance 900 Intake: Oral 900 Other: # Voids 1 4 - Exam GENERAL EXAM GEN. APPEARANCE: Mild discomfort HEAD EXAM: No pallor no icterus NECK EXAM: No JVD, no thyromegaly RESPIRATORY EXAM: Bilateral breath sounds are positive. No wheeze or crackles. CARDIOVASCULAR EXAM: S1 and S2 heard. GI/ABDOMINAL EXAM: Soft, nontender, bowel sounds positive. Examination of the back - no point tenderness in the lumbosacral region. EXTREMITIES EXAM: No edema in bilateral lower extremities NEUROLOGICAL EXAM: alert, oriented X3, focal neurological deficits. - Labs CBC & Chem 7: 06/05/18 07:52 06/05/18 07:52 Labs: Abnormal Lab Results - Last 24 Hours (Table) 06/05/18 06/05/18 Range/Units 07:52 07:52 WBC 16.8 H (3.8-10.6) k/uL MCV 100.7 H (80.0-100.0) fL Neutrophils # 13.0 H (1.3-7.7) k/uL Creatinine 0.63 L (0.66-1.25) mg/dL Assessment and Plan Assessment: ASSESSMENT Acute on chronic low back pain Essential hypertension Left renal cyst in the lower pole Obstipation secondary to narcotics Chronic insomnia Plan: Orthopedic surgery has been consulted and they suggested to continue with pain management as they think surgery would be less useful because of the disease process is at multiple levels. So currently the patient is being managed with pain medications and pain service consult is pending until Wednesday morning. Urology has evaluated the patient for the left renal cyst and suggested to get a CT of the abdomen and pelvis with and without contrast - was done yesterday- there are cortical cysts on the lower pole of the left kidney that appeared to be simple. No evidence of suspicious renal mass. We'll continue with the rest of his medical management and further recommendations to follow depending on the progress of the patient.
[2018-06-06] MEDS: HYDROcodone/APAP 7.5-325MG 1 EACH TAB PO PRN ×3 (00:13→16:21)
[2018-06-06] MEDS: HYDROmorphone 1 MG/ML 1 ML SYRINGE IVP PRN ×8 (02:02→23:46)
[2018-06-06] MEDS: SODIUM CHLORIDE 0.9% 1,000 ML IV SCH ×3 (02:03→23:47)
[2018-06-06] MEDS: METHOCARBAMOL 500 MG TAB PO PRN ×3 (05:14→21:33)
[2018-06-06] MEDS: predniSONE 20 MG TAB PO SCH (07:44)
[2018-06-06] MEDS: GABAPENTIN 300 MG CAP PO SCH ×3 (07:44→20:41)
[2018-06-06] MEDS: ATENOLOL 50 MG TAB PO SCH (07:45)
[2018-06-06] MEDS: ENOXAPARIN 40 MG/0.4 ML SYRINGE SQ SCH (07:45)
[2018-06-06] MEDS: SENNOSIDES-DOCUSATE SODIUM 1 EACH TAB PO SCH (07:45)
[2018-06-06] MEDS: NICOTINE 21MG/24HR PATCH TRANSDERM SCH (07:45)
[2018-06-06] MEDS: amLODIPine 5 MG TAB PO SCH (07:45)
[2018-06-06] MEDS: POLYETHYLENE GLYCOL 3350 17 GM POWD.PACK PO SCH (07:45)
[2018-06-06] MEDS: LISINOPRIL 10 MG TAB PO SCH (07:45)
[2018-06-06 08:28] LABS: Basophils % (A) 0 %; Eosinophils # (A) 0.1 k/uL (0-0.7); Eosinophils % (A) 1 %; HCT 49.7 % (39.0-53.0); HGB 16.4 gm/dL (13.0-17.5); Lymphocytes # (A) 3.9 k/uL (1.0-4.8); Lymphocytes % (A) 27 %; MCHC 32.9 g/dL (31.0-37.0); MCV 100.4 fL (80.0-100.0); Mean Platelet Volume 7.6; Monocytes % (A) 7 %; Neutrophils # (A) 9.2 k/uL (1.3-7.7); Neutrophils % (A) 63 %; Platelet Count 237 k/uL (150-450); RBC 4.95 m/uL (4.30-5.90); RDW 12.2 % (11.5-15.5); WBC 14.5 k/uL (3.8-10.6)
--- NOTE | 2018-06-06 08:41 | P.PN ---
Progress Note - Text Progress Note Date: 06/06/18 Patient is a very pleasant 63-year-old male who is seen and examined at the bedside for follow-up evaluation in regards to his right lower extremity radiculopathy. Over the weekend he had some improvement of his symptoms and was able to ambulate the hallways without difficulty multiple times yesterday. Since last evening his symptoms have worsened again he continues extremity right lower extremity radiculopathy. He does feel his symptoms are better currently than they were admission but was they are not as good as it were yesterday. He continues to have some pain that radiates down the right posterior thigh, to the calf, and towards the foot. He has significant difficulty with sitting and ambulation. He is unable to stand longer than 10 minutes as it causes severe pain down the right lower extremity. He is currently standing at the bedside to eat go as he has difficulty with sitting. His symptoms have been ongoing for the past 2 months. He does have a history of previous lumbar surgical intervention of a laminectomy and decompression performed [address] Greer. He states at that time he did not have significant relief of his symptoms following surgical intervention. Over the years he has had treatment with Dr. Mckeon in pain management and has undergone epidural injections. These injections do provide relief of symptoms for approximately 11 days. He denies any recent injuries. He denies any lower extremity weakness bilaterally. He denies any left lower extremity radiculopathy. He is been following was primary care provider. He states he has been taking [place] and using a fentanyl patch without significant improvement of symptoms. Since his admission he has had an MRI of the lumbar spine performed which has been reviewed. He is currently waiting for consultation with pain management today. At this time he would like to exhaust conservative treatment before discussing the possibility of surgical intervention. He does feel his symptoms have had some improvement while on a steroid during his admission to the hospital. Physical exam: Patient is awake, alert, and oriented 3 Vital signs stable Good chest excursion with deep inspiration and expiration Abdomen soft nontender Examination of lumbar spine reveals skin is intact with no abrasions, lacerations, or bruises; no erythema, purulence or signs of infection Evidence of a well-healed incision along the midline of the lower lumbar spine No significant significant pain with palpation of the lumbar spine Dorsiflexion, plantarflexion, and extensor hallucis longus positive sustained bilaterally Lower extremity strength 5/5 bilaterally No lower extremity hyperreflexia bilaterally No signs or symptoms of DVT; no calf pain No pain with internal and external rotation of the hips bilaterally Neurovascularly intact Chronic skin changes of the bilateral feet Pertinent studies: MRI of the lumbar spine: L5-S1 evidence of prior laminectomy defect which appears to be on the right, significant degenerative disc disease, Modic endplate changes, and evidence of recurrent disc herniation with extruded fragment resulting in right neural foraminal stenosis Assessment: Right lower extremity radiculopathy Inability to ambulate due to pain Low back pain 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 Patient has had ongoing and worsening right lower extremity radiculopathy of the past 2 months without known injury. His symptoms are debilitating he has significant difficulty with sitting, standing, or walking. He spent most of the past 2-1/2 weeks lying in bed. An MRI lumbar spine has been performed and reviewed. Patient has been seen and examined by Dr. Margarito Chiang. At this time, we'll plan to continue conservative treatment. Patient is currently waiting for consultation with pain management. He has had some improvement with IV steroids during his admission. He is given a prescription for a 12 day prednisone taper to be taken in the outpatient setting. He should take this taper until completion. He should avoid anti-inflammatories while on this taper. He was also previously prescribed a cane but physical therapy recommends a walker. A prescription for a 2 wheeled walker has been written, signed, and placed in the patient's chart. Prednisone taper has also been printed, signed, placed in the patient's chart. We will plan have the patient follow-up in outpatient setting in approximately 2 weeks for further evaluation. If he were to fail conservative treatment options, he is a candidate for surgical intervention. The most likely proposed surgical intervention would be an L5-S1 minimally invasive posterior lateral decompression and fusion with transforaminal lumbar interbody fusion. 2. Patient will continue to be seen and examined by medicine 3. Patient waiting for consultation with pain management 4. Continue pain control with medications as prescribed including [place] and Dilaudid; patient may continue with Solu-Medrol as prescribed by medicine 5. From an orthopedic spine standpoint, patient is clear for discharge. He may follow-up with Tyron Yu PA-C or Dr. Margarito Chiang at [facility] in approximately 2 weeks for further evaluation 6. Patient has been discussed in detail with Dr. Margarito Chiang and he agrees with this plan
--- NOTE | 2018-06-06 16:27 | P.PAINPG ---
Subjective Progress Note Date: 06/06/18 This is 63 years old male, the 20 uselessly of history of severe low back pain, patient had lumbar laminectomy and discectomy done at L5-S1 done more than 15 years ago, he continued to have low back pain , which was managed as an outpatient with the pain medication and muscle relaxant, patient reported to one half months ago he started having severe low back pain with radiation to the right lower extremity associated with numbness and tingling sensation, the pain intensity increased recently which required him to be admitted to [facility], because of intractable low back pain, he denies any fever or night sweats he denies any change in the bowel movement or urination, and he is currently on Neurontin 300 mg 3 times a day and [place] 7.5/325 every 4 hours and fentanyl patch 25 g every 72 hours, and Robaxin thousand milligrams every 6 hours, and he continued to have severe intractable low back pain with radiation to right lower extremity . Objective - Vital Signs Vital signs: Vital Signs Temp 97.1 F L 06/06/18 06:41 Pulse 56 L 06/06/18 06:41 Resp 16 06/06/18 06:41 BP 145/67 06/06/18 06:41 Pulse Ox 95 06/06/18 06:41 Intake & Output 06/05/18 06/06/18 06/06/18 18:59 06:59 18:59 Intake Total 800 800 Balance 800 800 Intake: Intake, IV Titration 800 Amount Sodium Chloride 0.9% 1, 800 000 ml @ 100 mls/hr IV . Q10H ON LICENSE OF [facility] Rx#:[id number] Oral 800 Other: Voiding Method Toilet # Voids 1 2 - Exam Social history : smoker , NO ETOH , NO Illegal drugs use . Review of Systems : 1- Constitutional : no chills , no fever , no night sweats , 2- Ears : no ear discharge , no change in hearing 3-Nose, Mouth ,Throat ; no bleeding gums, no sore throat , no epistaxis , 4-Cardiovascular : Denies chest pain, , no orthopnea , no palpitation 5-Respiratory : Denies cough , no dyspnea , no hemoptysis 6-Gastrointestinal :, no change in bowel habits , no coffee- ground emesis . 7-Genitourinary : No hematuria , no discharge , no incontinence, 8-Musculoskeletal : gait dysfunction , report low back pain with radiation to the right lower extremity associated with numbness , 9- Neurological : no ataxia , no tremor , no sezure , 10-Psychatric , no suicidal ideation no hallucination 11- Endocrine : no cold intolerence , no polyuria , no polydypsia , 12-Hematologic : no easy bleeding , no easy brusing , 13-Allergic / immunology : no angioedema , no wheezing ,no allergic rhinitis 14-Integumentary : no brttle nails , no change hair / nails , no foot/leg ulcers . Physical Examinations : 1-Constitutional : Cooperative , not in acute distress . 2-HEENT : nech ; supple , no Lymphadenopathy , no Thyromegaly , :eyes , no icterus, no photophobia . ENT : , normal oropharynx , no Thrush 3- Respiratory : Chest clear to auscultations Bilaterally , no wheezing 4- Cardiovascular : regular rate and rhythem , S1 , S2 , no S3 , no S4. 5- Gastrointestinal: abdomen soft no tenderness , no organomegally . 6- Genitourinary : Defferred . 7-Integumentary : No cellulitis , no ulcers , normal skin turgor , no cyanotic . 8- neurologic : Cranial nerve II to XII intact , no focal neurological deffecit 9-psychatric : alert , oriented X 3 , appropriate affect , intact judgment and insight . 10-Lymphatic : no Lymphadenopathy. 11- musculoskeltal: Unable to ambulate secondary of severe low back pain and right lower extremity pain Lumber spine moter stegnth lower extremities ,thigh and legs 5/5 Right side , 5/5 Left side deep tendon reflexes : normal Knee Jerk , normal ankle Jerk positive lumber facet Loading Test Range of motion of the lumbar spine Flexion 30 degrees, extension 10 degrees strait leg raising test , positive at 30 degree right side and is negative left side Fabere test positive RT and negative LT . MRI of the lumbar spine= L5-S1 disc herniation L3 4 L4 5 and L5-S1 disc bulging and facet arthropathy - Labs CBC & Chem 7: 06/06/18 08:05 06/05/18 07:52 Labs: Abnormal Lab Results - Last 24 Hours (Table) 06/06/18 Range/Units 08:05 WBC 14.5 H (3.8-10.6) k/uL MCV 100.4 H (80.0-100.0) fL Neutrophils # 9.2 H (1.3-7.7) k/uL Assessment and Plan Plan: Assessment and plan= lumbar radiculopathy right side L 45 and L5-S1 , fAILED back surgerY syndrome lumbar area Lumbar spondylosis and lumbar facet arthropathy, Patient could benefit from right-sided transforaminal epidural steroid injections under fluoroscopy guidance at L4-5 AND L5-S1 Procedure risk and benefits and alternatives discussed with the patient he agreed with proceeding, Hold Lovenox Time with Patient: Greater than 30 PQRS Measure Charge Sheet Measure #130: Documentation of Current Meds in Medical Chart: Patient's medications documented in chart Measure #226: Tobacco Use: Screen & Cessation Intervention: Pt screened for tobacco use AND intervention given Measure #111: Pneumonia Vaccination: Pneumococcal vaccine NOT administered or previously given Measure #47: Advance Care Plan: Advance care planning discussed & documented, pt chose/unable to give Measure #412: Opioid Treatment Agreement: No documentation of signed opioid treatment agreement Measure #408: Opioid Therapy Follow-up Evaluation: Patient had NO f/u eval minimum every 3 months during opioid therapy Measure #317: Preventitive Care & Scrn High Bld Press & F/U: Normal blood pressure, f/u not required Measure #128: Body Mass Index (BMI) Screening & Follow-up: BMI documented ABOVE normal parameters - f/u documented Measure #131: Pain Assessment & Follow-up: Pain positive & plan documented, Follow-up scheduled Measure #431: Unhealthy Alcohol Use Preventative Care & Scrn: Patient not identified as an unhealthy alcohol user PQRS Narrative: Smoking Status Current every day smoker Do You Want the Pneumonia No Vaccine AT THIS TIME? Blood Pressure [Right Arm] 145/67 Blood Pressure [Left Arm 137/64 Supine] Blood Pressure 179/73 Pain Intensity [Back] 4 Pain Intensity [Right Thigh] 0 Pain Intensity 4 Pain Scale Used Numeric (1 - 10) Scale Used Numeric (1 - 10) Home Medications: Ambulatory Orders Atenolol [Tenormin] 50 mg PO DAILY 06/02/18 Cyclobenzaprine [Flexeril] 10 mg PO Q12H 06/02/18 Fluticasone Nasal [place] [Flonase Nasal [place]] 1 spray EA NOSTRIL DAILY 06/02/18 Gabapentin [Neurontin] 300 mg PO TID 06/02/18 HYDROcodone/APAP 7.5-325MG [[place] 7.5-325] 2 tab PO Q8H PRN 06/02/18 Lisinopril [Zestril] 10 mg PO DAILY 06/02/18 Methocarbamol [Robaxin] 1,000 mg PO QID 06/02/18 Naloxone HCl [Narcan] 4 mg NASAL ONCE PRN 06/02/18 amLODIPine [Norvasc] 5 mg PO DAILY 06/02/18 fentaNYL 25MCG/HR PATCH [Duragesic 25MCG/HR] 25 mcg TRANSDERM Q72H 06/02/18 predniSONE 20 mg PO DIRECTED #24 tab 06/06/18 Controlled Substance Measures - Controlled Substance Measures Is patient prescribed a controlled substance at discharge?: No When asked, does pt state using other controlled substances?: No If prescribed controlled substance>3 days was MAPS reviewed?: No If Rx opioid, was Start Talking consent form obtained?: No If opioid is for acute pain is fill amount 7 days or less?: No Was information provided regarding opioid addiction?: No
--- NOTE | 2018-06-06 18:23 | P.PN ---
Subjective Progress Note Date: 06/06/18 Principal diagnosis: Acute on chronic low back pain Mr. Dang is a 63-year-old male with a past medical history of chronic low back pain, hypertension admitted to the hospital with a chief complaint of acute exacerbation of chronic low back pain. Patient had been evaluated by orthopedic services and currently his pain is marginally controlled. Patient had an MRI of the lumbar sprain done which was showing complex cyst in the lower pole of the left kidney and so urological services have been consulted. On - today the patient is seen getting out of his bed and walking to the bathroom by himself. He states his pain is under much better control. Patient denies having any bowel or bladder incontinence. Patient was evaluated by pain services today and is scheduled for an epidural injection for tomorrow. On review of systems Constitutional -Patient denies having any fever chills or rigors. Cardiovascular -No chest pain or palpitations. Respiratory -No cough or difficulty in breathing. -No dysuria or hematuria. Objective - Vital Signs Vital signs: Vital Signs Temp 98.4 F 06/06/18 14:06 Pulse 63 06/06/18 14:06 Resp 16 06/06/18 14:06 BP 108/53 06/06/18 14:06 Pulse Ox 93 L 06/06/18 14:06 Intake & Output 06/05/18 06/06/18 06/06/18 18:59 06:59 18:59 Intake Total 800 800 Balance 800 800 Intake: Intake, IV Titration 800 Amount Sodium Chloride 0.9% 1, 800 000 ml @ 100 mls/hr IV . Q10H [facility] Rx#:[id number] Oral 800 Other: Voiding Method Toilet # Voids 1 2 - Exam GEN. APPEARANCE: Mild discomfort HEAD EXAM: No pallor no icterus NECK EXAM: No JVD, no thyromegaly RESPIRATORY EXAM: Bilateral breath sounds are positive. No wheeze or crackles. CARDIOVASCULAR EXAM: S1 and S2 heard. GI/ABDOMINAL EXAM: Soft, nontender, bowel sounds positive. EXTREMITIES EXAM: No edema in bilateral lower extremities NEUROLOGICAL EXAM: alert, oriented X3, focal neurological deficits. - Labs CBC & Chem 7: 06/06/18 08:05 06/05/18 07:52 Labs: Abnormal Lab Results - Last 24 Hours (Table) 12/10/18 Range/Units 08:05 WBC 14.5 H (3.8-10.6) k/uL MCV 100.4 H (80.0-100.0) fL Neutrophils # 9.2 H (1.3-7.7) k/uL Assessment and Plan Assessment: ASSESSMENT Intractable low back pain Essential hypertension Left renal cyst in the lower pole Obstipation secondary to narcotics Chronic insomnia Plan: Orthopedic surgery has been consulted and they suggested to continue with pain management as they think surgery would be less useful because of the disease process is at multiple levels. Urology has evaluated the patient for the left renal cyst and suggested to get a CT of the abdomen and pelvis with and without contrast - was done yesterday- there are cortical cysts on the lower pole of the left kidney that appeared to be simple. No evidence of suspicious renal mass. We'll have a follow-up as outpatient. Patient has been evaluated by pain services today and he is being scheduled for an epidural steroid injection. Patient will be kept nothing by mouth for tomorrow morning. And will hold all anticoagulants. We'll continue with the rest of his medical management and further recommendations to follow depending on the progress of the patient.
[2018-06-07] MEDS: HYDROcodone/APAP 7.5-325MG 1 EACH TAB PO PRN ×2 (00:08→08:42)
[2018-06-07 01:44] VITALS: RESP 18
[2018-06-07] MEDS: HYDROmorphone 1 MG/ML 1 ML SYRINGE IVP PRN ×3 (02:40→10:53)
[2018-06-07] MEDS ORDERED: IV FLUID CONTINUATION 1,000 ML IV ONE (06:42)
--- NOTE | 2018-06-07 07:52 | P.PCN ---
Date of Procedure: 06/07/18 Pathology: none sent Condition: stable Disposition: floor Description of Procedure: PREOPERATIVE DIAGNOSIS: Right Lumbar radiculopathy, post laminectomy pain syndrome POSTOPERATIVE DIAGNOSIS: Same as above PROCEDURE 1. Transforaminal epidural steroid injection under fluoroscopic guidance at right L4 5 and L5-S1 2. Lumbar epidurogram. SURGEON: Stephanie Broussard MD ANESTHESIA: Local with 1% lidocaine; IV sedation with Versed -2--mg and fentanyl 100---mcg. EBL: Minimal PROCEDURE INDICATION: The patient with low back pain and radiculopathy symptoms unresponsive to conservative treatment. PROCEDURE DESCRIPTION / TECHNIQUE: The patient was seen and identified in the preoperative area. Risks, benefits , complications, and alternatives were discussed with the patient. The patient agreed to proceed with the procedure and signed the consent. IV was started, and vital signs were stable. Patient was taken to the OR and time out was completed. The patient was placed in the prone position on procedure table and a pillow was placed under the abdomen to reduce lumbar lordosis. The lumbosacral area was prepped and draped in the usual sterile fashion. Critical pause was taken. Vital signs were closely monitored during the procedure. Conscious sedation was used during the procedure to decrease patients anxiety. The vertebral body of the lumbar vertebra L5 was squared off , then the C-arm was tilted to the Rt oblique position by about 20 degreesand the target point was at the 6 o'clock position of the pedicle of L5 the skin and deeper tissues just below were localized with 1% lidocaine. Subsequently, a 22-gauge 3.5-inch spinal needle was advanced under a tunneled view fluoroscopic guidance just underneath the chin of the Vincent dog at the right. Under lateral fluoroscopy, the needle was then advanced to the middle of the upper one third of the foramen . After negative aspiration of CSF and blood and with no paresthesias, 1 mL o fomnipaque contrast dye was injected excellent epidurogram and outlining of the L5 nerve root was identified. Subsequently, 2 mL of block solution containing 10 mg of Decadron and 1 mL of ropivacaine 0.5% was injected. Needle was removed and the same . The same procedure was repeated at the L4 level targeting the L4 nerve root on the right side in the same manner. At the end of the procedure, skin was cleansed, and bandages were applied. COMPLICATIONS: None COMMENTS: DISPOSITION / PLANS: The patient was placed in a supine position and transferred to the recovery area in a stable condition for observation. Patient was discharged from the recovery room after meeting discharge criteria to floor.
[2018-06-07 08:10] VITALS: PULSE 60
[2018-06-07 08:19] VITALS: BP 155/81; TEMP 97.5
--- NOTE | 2018-06-07 08:27 | FL ---
EXAMINATION TYPE: FL guided pain mgmt statistic DATE OF EXAM: 06/07/2018 CLINICAL HISTORY: Low back pain. TECHNIQUE: Fluoroscopy. COMPARISON: None. FINDINGS: Fluoroscopic guidance was provided during pain relief procedure performed by anesthesia Do ctor. A total of 21 seconds of fluoroscopic time was utilized during the procedure and 3 spot images are acquired. Images acquired shows needle localization at L4 level. IMPRESSION: As Above.
[2018-06-07] MEDS: METHOCARBAMOL 500 MG TAB PO PRN (08:38)
[2018-06-07] MEDS: ATENOLOL 50 MG TAB PO SCH (08:39)
[2018-06-07] MEDS: POLYETHYLENE GLYCOL 3350 17 GM POWD.PACK PO SCH (08:39)
[2018-06-07] MEDS: amLODIPine 5 MG TAB PO SCH (08:39)
[2018-06-07] MEDS: predniSONE 20 MG TAB PO SCH (08:39)
[2018-06-07] MEDS: NICOTINE 21MG/24HR PATCH TRANSDERM SCH (08:39)
[2018-06-07] MEDS: GABAPENTIN 300 MG CAP PO SCH (08:39)
[2018-06-07] MEDS: SENNOSIDES-DOCUSATE SODIUM 1 EACH TAB PO SCH (08:39)
[2018-06-07] MEDS: LISINOPRIL 10 MG TAB PO SCH (08:39)
[2018-06-07] MEDS: SODIUM CHLORIDE 0.9% 1,000 ML IV SCH (10:53)
== END 2018-06-07 15:44 | disposition home or self-care (01) | DRG 552 ==
LOC: EC 17:53 → 4MS4W 19:57 → OBSVTOIN 06-05 06:44 → 4MS4W 06-06 10:30
PROVIDERS: ADMIT Hospitalist; ATTEND Hospitalist
PROC: B01B1ZZ Fluoroscopy of Spinal Cord using Low Osmolar Contrast (ICD-10-PCS; principal; 2018-06-07 07:15)
PROC: 3E0R33Z Introduction of Anti-inflammatory into Spinal Canal, Percutaneous Approach (ICD-10-PCS; principal; 2018-06-07 07:15)
DX: M51.17 Intervertebral disc disorders with radiculopathy, lumbosacral region (principal); M48.07 Spinal stenosis, lumbosacral region; K59.03 Drug induced constipation; K57.90 Diverticulosis of intestine, part unspecified, without perforation or abscess without bleeding; F51.04 Psychophysiologic insomnia; G89.29 Other chronic pain; I10 Essential (primary) hypertension; N28.1 Cyst of kidney, acquired; T40.605A Adverse effect of unspecified narcotics, initial encounter; K44.9 Diaphragmatic hernia without obstruction or gangrene; F17.210 Nicotine dependence, cigarettes, uncomplicated; M47.27 Other spondylosis with radiculopathy, lumbosacral region; N42.9 Disorder of prostate, unspecified; Z79.899 Other long term (current) drug therapy; Z88.0 Allergy status to penicillin; Z85.828 Personal history of other malignant neoplasm of skin; Z86.010 Personal history of colon polyps; Z98.42 Cataract extraction status, left eye; Z98.41 Cataract extraction status, right eye; Z96.1 Presence of intraocular lens; Z80.0 Family history of malignant neoplasm of digestive organs; Z82.49 Family history of ischemic heart disease and other diseases of the circulatory system
CPT/HCPCS: 36415; 64483; 71260; 72141; 72148; 74178; 80048; 80053; 81003; 85025; 96374; 99284

== ENCOUNTER 2018-06-20 13:40 | Emergency (ER) | payer MEDICARE, BC ==
[2018-06-20 14:00] VITALS: BP 118/71; PULSE 61; RESP 20; TEMP 98.1
--- NOTE | 2018-06-20 14:38 | ED ---
Recheck HPI - General Chief Complaint: Recheck/Abnormal Lab/Rx Stated Complaint: med refil Time Seen by Provider: 06/20/18 14:10 Source: patient, RN notes reviewed Mode of arrival: ambulatory Limitations: no limitations - History of Present Illness Initial Comments: 63-year-old male presents emergency department for medication refill. Patient is on chronic medications including Elrod and fentanyl. Patient states that he has been trying to contact his PCP for refill since last Wednesday and the pharmacy states that it was not approved. Patient states that he was not discharged from his practice. Patient has not abuse and medication last refill 05/18/2018. Patient denies any withdrawal symptoms at this time. - Related Data Home Medications Medication Instructions Recorded Confirmed Atenolol [Tenormin] 50 mg PO DAILY 06/02/18 06/02/18 Fluticasone Nasal [place] [Flonase 1 spray EA NOSTRIL DAILY 06/02/18 06/02/18 Nasal [place]] HYDROcodone/APAP 7.5-325MG [Elrod 2 tab PO Q8H PRN 06/02/18 06/02/18 7.5-325] Lisinopril [Zestril] 10 mg PO DAILY 06/02/18 06/02/18 Methocarbamol [Robaxin] 1,000 mg PO QID 06/02/18 06/02/18 Naloxone HCl [Narcan] 4 mg NASAL ONCE PRN 06/02/18 06/02/18 amLODIPine [Norvasc] 5 mg PO DAILY 06/02/18 06/02/18 fentaNYL 25MCG/HR PATCH [Duragesic 25 mcg TRANSDERM Q72H 06/02/18 06/02/18 25MCG/HR] Previous Rx's Medication Instructions Recorded predniSONE 20 mg PO DIRECTED #24 tab 06/06/18 Gabapentin [Neurontin] 300 mg PO TID #90 cap 06/07/18 Sennosides-Docusate Sodium 1 each PO DAILY PRN #30 tab 06/07/18 [Senokot-S] HYDROcodone/APAP 7.5-325MG [Elrod 1 tab PO Q6HR PRN 3 Days #12 tab 06/20/18 7.5-325] Allergies Allergy/AdvReac Type Severity Reaction Status Date / Time Penicillins Allergy Unknown Verified 12/24/18 14:00 Review of Systems ROS Statement: Those systems with pertinent positive or pertinent negative responses have been documented in the HPI. ROS Other: All systems not noted in ROS Statement are negative. Past Medical History Past Medical History: Asthma, Cancer, Hypertension Additional Past Medical History / Comment(s): asthma as child,diverticulits, when younger had insomnia, lower back pain, ddd, hc c-diff 2011 or 2012 in [facility] ,past squamous cell skin ca(removed), hiatal hernia /past gerd but changed diet added fiber and no longer has problem,"has numbness rt hand 4th and 5th digit and if stands too long -rt leg gets pins/needles and numbness History of Any Multi-Drug Resistant Organisms: C-DIFF Date of last positivie culture/infection: 2005 or 2006 in [facility] MDRO Source:: stool Past Surgical History: Back Surgery, Hernia Repair, Orthopedic Surgery, Tonsillectomy Additional Past Surgical History / Comment(s): History laminectomy decompression with discectomy at L5-S1 on the right 15 years ago, cataracts, colonoscopy/polypectomt(benign), umb hernia repair, knee repair (pt unsure which knee), wisdom teeth extracted, skin ca removed Past Anesthesia/Blood Transfusion Reactions: Previous Problems w/ Anesthesia Additional Past Anesthesia/Blood Transfusion Reaction / Comment(s): after one sx needed and idc forawhile Past Psychological History: No Psychological Hx Reported Smoking Status: Current every day smoker Past Alcohol Use History: None Reported Past Drug Use History: None Reported - Past Family History Father Family Medical History: Hypertension Additional Family Medical History / Comment(s): had maleria when in [facility] Mother Family Medical History: Cancer, Dialysis, Renal Disease Additional Family Medical History / Comment(s): esrd/dialysis and liver cancer General Exam Limitations: no limitations General appearance: alert, in no apparent distress Head exam: Present: atraumatic, normocephalic, normal inspection Eye exam: Present: normal appearance, PERRL, EOMI. Absent: scleral icterus, conjunctival injection, periorbital swelling Respiratory exam: Present: normal lung sounds bilaterally. Absent: respiratory distress, wheezes, rales, rhonchi, stridor Cardiovascular Exam: Present: regular rate, normal rhythm, normal heart sounds. Absent: systolic murmur, diastolic murmur, rubs, gallop, clicks Course Vital Signs 12/24/18 13:57 Temperature 98.1 F Pulse Rate 61 Respiratory 20 Rate Blood Pressure 118/71 O2 Sat by Pulse 97 Oximetry Medical Decision Making - Medical Decision Making 63-year-old male presented for medication refill. Maps was performed. Patient does feel Elrod and fentanyl on a regular basis with only one provider. Patient will be given refill at this time and he will follow-up with his PCP on Wednesday. Disposition Clinical Impression: Chronic pain, Encounter for medication refill Disposition: HOME SELF-CARE Condition: Stable Instructions: Chronic Pain (ED) Additional Instructions: Please return to the Emergency Department if symptoms worsen or any other concerns. Prescriptions: HYDROcodone/APAP 7.5-325MG [Elrod 7.5-325] 1 tab PO Q6HR PRN 3 Days #12 tab PRN Reason: Pain Is patient prescribed a controlled substance at d/c from ED?: Yes When asked, does pt state using other controlled substances?: No If prescribed controlled substance>3 days was MAPS reviewed?: Prescribed <3 Days Referrals: Navid Pompa MD [Primary Care Provider] - 1-2 days Time of Disposition: 14:37
== END 2018-06-20 14:42 | disposition home or self-care (01) ==
LOC: EC 13:40
DX: G89.29 Other chronic pain (principal); Z76.0 Encounter for issue of repeat prescription; J45.909 Unspecified asthma, uncomplicated; I10 Essential (primary) hypertension; Z85.828 Personal history of other malignant neoplasm of skin; F17.200 Nicotine dependence, unspecified, uncomplicated; Z79.891 Long term (current) use of opiate analgesic; Z79.899 Other long term (current) drug therapy; Z88.0 Allergy status to penicillin
CPT/HCPCS: 99281

== ENCOUNTER 2018-06-30 08:50 | Day surgery (SDC) | payer MEDICARE, BC ==
[2018-06-23 10:14] VITALS: BMI 27.2
[~2018-06-30 08:50] MED LIST: SODIUM CHLORIDE 0.9% 500 ML 500 ML IV SCH
[2018-06-30 09:26] VITALS: RESP 16; TEMP 97.1
[2018-06-30] MEDS ORDERED: LACTATED RINGERS 1,000 ML IV ONE (09:26)
[2018-06-30] MEDS ORDERED: LIDOCAINE 1% 20 ML VIAL (10MG/ML) FOR IV START INTRADERMA ONE (09:27)
--- NOTE | 2018-06-30 10:42 | P.PCN ---
Date of Procedure: 06/30/18 Procedure(s) Performed: PREOPERATIVE DIAGNOSIS:1- Lumbar radiculopathy in right L4-5 ,L5-S1 distribution 2-postlaminectomy pain syndrome lumbar area POSTOPERATIVE DIAGNOSIS: Same as preoperative diagnosis PROCEDURE 1. Transforaminal epidural steroid injection under fluoroscopic guidance at right L4-5 ,L5-S1 level. 2. Lumbar epidurogram. ANESTHESIA: Local with 1% lidocaine 3 ml , moderate sedation with intravenous Versed 2 mg and fentanyle 100 micrograms EBL: Minimal PROCEDURE INDICATION: The patient with low back pain and radiculopathy symptoms unresponsive to conservative treatment. PROCEDURE DESCRIPTION / TECHNIQUE: The patient was seen and identified in the preoperative area. Risks, benefits , complications, and alternatives were discussed with the patient. The patient agreed to proceed with the procedure and signed the consent. IV was started, and vital signs were stable. Patient was taken to the OR and time out was completed. The patient was placed in the prone position on procedure table and a pillow was placed under the abdomen to reduce lumbar lordosis. The lumbosacral area was prepped and draped in the usual sterile fashion. Critical pause was taken. Vital signs were closely monitored during the procedure. Conscious sedation was used during the procedure to decrease patients anxiety. Using oblique fluoroscopy, the chin of the ``Vincent dog at right L4-5 level was identified, and the skin and deeper tissues just below was localized with 1 % lidocaine. Subsequently, a 22-gauge 3.5-inch spinal needle was advanced under a tunneled view fluoroscopic guidance just underneath the chin of the ``Vincent dog at the right L4-5 . Under lateral fluoroscopy, the needle was then advanced to the posterior border of the right L4-5 interforaminal space. After negative aspiration of CSF and blood and with no paresthesias, 1 mL Isovue 200 contrast dye was injected excellent epidurogram and outlining of the Right L4-5 nerve root Subsequently, 3 mL of block solution containing 40 mg Depo-Medrol, and 2 mL of Lidocaine 1% was injected. Needle was removed and the same procedure was repeated at the right L5-S1 . At the end of the procedure , skin was cleansed, and bandages were applied. COMPLICATIONS:none DISPOSITION / PLANS: The patient was placed in a supine position and transferred to the recovery area in a stable condition for observation. There was no evidence of lower extremity motor or sensory deficit after the procedure. Patient was discharged from the recovery room after meeting discharge criteria. Home discharge instructions were given to the patient by the staff. The patient was reexamined prior to discharge.
[2018-06-30] MEDS ORDERED: IV FLUID CONTINUATION 1,000 ML IV ONE (10:46)
[2018-06-30 11:01] VITALS: BP 146/74; PULSE 57
--- NOTE | 2018-06-30 12:00 | FL ---
EXAMINATION TYPE: FL guided pain mgmt statistic DATE OF EXAM: 06/30/2018 CLINICAL HISTORY: Back pain. TECHNIQUE: Fluoroscopy. COMPARISON: None. FINDINGS: Fluoroscopic guidance was provided during pain relief procedure performed by Dr. Navas . A total of 15 seconds of fluoroscopic time was utilized during the procedure and 2 spot images are acquired. Images acquired shows needle localization of the lumbar spine. IMPRESSION: As Above.
== END 2018-06-30 11:18 | disposition home or self-care (01) ==
LOC: ORPAIN 08:50
PROVIDERS: ATTEND Specialist
DX: M96.1 Postlaminectomy syndrome, not elsewhere classified (principal); M54.16 Radiculopathy, lumbar region; I10 Essential (primary) hypertension; J45.909 Unspecified asthma, uncomplicated; Z88.0 Allergy status to penicillin
CPT/HCPCS: 64483; 64484; J2250; J1030; J3010; Q9966; 99152

== ENCOUNTER → 2018-08-18 | Outpatient (CLI) | payer MEDICARE, BC ==
[2018-08-18 14:32] VITALS: BP 116/68; PULSE 65; RESP 16
--- NOTE | 2018-08-18 15:16 | P.PN ---
Subjective Progress Note Date: 08/18/18 Nir is a 63-year-old gentleman who presents today for follow-up after having an epidural steroid injection on the right L4-L5 and L5-S1. His a history of chronic back pain has a history of back surgery and is having radicular symptoms going down his right leg. He reports that the first epidural injection helped him a little of the second one did not help him. He is most concerned about his chronic pain and his pain medications. He is concerned about increasing the doses and regarding his primary care doctor Laci off of them. He has an appointment see another pain doctor will be writing his opioids. He is concerned about having back surgery does not want to have back surgery. Objective - Vital Signs Vital signs: Intake & Output 08/17/18 08/18/18 08/18/18 18:59 06:59 18:59 Weight 86.183 kg - Exam General: Awake and alert oriented 3 mild distress Respiratory exam: No audible wheezing no accessory muscle usage Cardiovascular exam: regular rate, palpable bilateral pulses, no lower extremity edema Abdominal exam: No distention nontender to palpation, obese Cervical spine: Normal alignment, Spurling's negative, facet loading negative Lumbar spine: Levoscoliosis, loss of lumbar lordosis, left tilted at the waist, forward flexed body position, nontender to palpation. No erythema or fluctuance. Straight leg raise is positive on the left. Sacroiliac joints: Nontender to palpation, YODIT is negative, Ga[place]elon negative Neuro exam: Normal sensation in bilateral upper extremities, deep tendon reflexes are 2+ bilateral upper extremities. Normal sensation in bilateral lower extremities. Deep tendon reflexes are 1+ in lower extremities Psych exam: Cooperative, appropriate mood Assessment and Plan Assessment: Lumbar radiculopathy Chronic opioid dependence Plan: Had along discussion with the patient regarding his options. Most of time was spent discussing pain medications and why he should come off the pain medications. Patient feels that the medication at best option and I disagreed with him on this point. I discussion with what he can do including come off of all his pain medications to feel better overall. He feels that he does not want surgery and thinks that he will get better over time and it can understand that. I advised him that it may be a slow process but had do believe he can get better but he needs to come off his pain medications and continue trying to exercise in a regular basis. I advised him we can try a repeat the epidural injection if he wants he said he'll give us a call back if he feels that is necessary at some point.
== END ==
LOC: PNWHC3 14:16
PROVIDERS: ATTEND Hospitalist
DX: M54.16 Radiculopathy, lumbar region (principal); F11.20 Opioid dependence, uncomplicated
CPT/HCPCS: 99211

== ENCOUNTER 2019-02-22 16:39 | Emergency (ER) | payer MEDICARE, BC ==
[2019-02-22] MEDS ORDERED: SODIUM CHLORIDE 0.9% 500 ML 500 ML IV STA (17:30)
[2019-02-22] MEDS ORDERED: HYDROmorphone 1 MG/ML 1 ML SYRINGE IVP STA (17:31)
[2019-02-22] MEDS ORDERED: KETOROLAC 30 MG/ML 1 ML VIAL IVP STA (17:31)
--- NOTE | 2019-02-22 17:52 | ED ---
General Adult HPI - General Chief complaint: Fall Stated complaint: Back Pain Time Seen by Provider: 02/22/19 16:56 Source: patient Mode of arrival: EMS Limitations: no limitations - History of Present Illness Initial comments: 64-year-old male patient presents to the emergency department today with multiple complaints. Patient is reporting increased low back pain and thoracic back pain after experiencing a fall a couple of weeks ago. Patient states since the fall he has been having limited mobility and laying in bed. States he has been having low back pain with radiation down the right leg. Patient states the pain travels on the back of his leg to his knee. States that he does have numbness and tingling to the lower extremities which is been present for the last couple of months as well. Denies any head injury with the fall. Patient states he is becoming progressively more weak. Patient states that today he was unable to ambulate, states his legs would not hold him. Patient states that he feels very disoriented and "out of it". Patient states he has never felt this way before. Patient is also reporting bilateral lower extremity edema and pain. Patient states that the swelling in his legs is worsening. He has not had an appetite. Patient denies any recent rash, fever, chills, shortness breath, chest pain, abdominal pain, nausea, vomiting, diarrhea, constipation, hematuria, dysuria, urinary urgency, urinary frequency, headache, or visual changes. - Related Data Home Medications Medication Instructions Recorded Confirmed Atenolol [Tenormin] 50 mg PO DAILY 06/02/18 08/18/18 Fluticasone Nasal [place] [Flonase 1 spray EA NOSTRIL DAILY 06/02/18 08/18/18 Nasal [place]] Lisinopril [Zestril] 10 mg PO DAILY 06/02/18 08/18/18 Methocarbamol [Robaxin] 1,000 mg PO QID 06/02/18 08/18/18 Naloxone HCl [Narcan] 4 mg NASAL ONCE PRN 06/02/18 08/18/18 amLODIPine [Norvasc] 5 mg PO DAILY 06/02/18 08/18/18 fentaNYL 25MCG/HR PATCH [Duragesic 25 mcg TRANSDERM Q72H 06/02/18 08/18/18 25MCG/HR] Gabapentin [Neurontin] 600 mg PO TID 08/18/18 08/18/18 Previous Rx's Medication Instructions Recorded Sennosides-Docusate Sodium 1 each PO DAILY PRN #30 tab 06/07/18 [Senokot-S] HYDROcodone/APAP 7.5-325MG [Wilson 1 tab PO Q6HR PRN 3 Days #12 tab 06/20/18 7.5-325] Allergies Allergy/AdvReac Type Severity Reaction Status Date / Time Penicillins Allergy Unknown Verified 06/23/18 10:07 Childhood Review of Systems ROS Statement: Those systems with pertinent positive or pertinent negative responses have been documented in the HPI. ROS Other: All systems not noted in ROS Statement are negative. Past Medical History Past Medical History: Asthma, Cancer, Hypertension Additional Past Medical History / Comment(s): asthma as child,diverticulits, lower back pain, ddd, hx c-diff 2011 or 2012 in [facility] ,past squamous cell skin ca(removed), "has numbness rt hand 4th and 5th digit and if stands too long -rt leg gets pins/needles and numbness History of Any Multi-Drug Resistant Organisms: C-DIFF Date of last positivie culture/infection: 2011 or 2012 in [facility] MDRO Source:: stool Past Surgical History: Hernia Repair, Orthopedic Surgery Additional Past Surgical History / Comment(s): History laminectomy decompression with discectomy at L5-S1 on the right 15 years ago, bilat cataracts, colonoscopy/polypectomt(benign), umb hernia repair, knee repair (pt unsure which knee), wisdom teeth extracted, skin ca removed Past Anesthesia/Blood Transfusion Reactions: Previous Problems w/ Anesthesia Additional Past Anesthesia/Blood Transfusion Reaction / Comment(s): after back sx needed and idc for awhile Past Psychological History: No Psychological Hx Reported Smoking Status: Current every day smoker Past Alcohol Use History: Rare Past Drug Use History: Marijuana - Past Family History Father Family Medical History: Hypertension Additional Family Medical History / Comment(s): had maleria when in [facility] Mother Family Medical History: Cancer, Dialysis, Renal Disease Additional Family Medical History / Comment(s): esrd/dialysis and liver cancer General Exam Limitations: no limitations General appearance: alert, in no apparent distress, other (This is a well- developed, well-nourished adult male patient in no acute distress. Vital signs upon presentation are temperature 98.1F, pulse 65, respirations 18, blood pressure 166/60, pulse ox 95% on room air.) Eye exam: Present: normal appearance, PERRL, EOMI. Absent: scleral icterus, conjunctival injection, periorbital swelling ENT exam: Present: normal exam, normal oropharynx, mucous membranes moist Respiratory exam: Present: normal lung sounds bilaterally. Absent: respiratory distress, wheezes, rales, rhonchi, stridor Cardiovascular Exam: Present: regular rate, normal rhythm, normal heart sounds. Absent: systolic murmur, diastolic murmur, rubs, gallop, clicks GI/Abdominal exam: Present: soft, normal bowel sounds. Absent: distended, tenderness, guarding, rebound, rigid Rectal exam: Present: decreased rectal tone Extremities exam: Present: full ROM, normal capillary refill, other (Bilateral lower extremity edema, 2+ pitting to the bilateral ankles and feet.). Absent: normal inspection, tenderness, pedal edema, joint swelling, calf tenderness Back exam: Present: normal inspection, vertebral tenderness (lumbar and thoracic) Neurological exam: Present: alert, oriented X3, CN II-XII intact, other (Strength in the upper extremities 4/5, strength in the lower extremities is 3/5. ) Expanded Upper motor neuron: Babinski Sign: Normal Motor strength exam: RUE: 4, LUE: 4, RLE: 3, LLE: 3 DTR: Patellar (R): 2+, Patellar (L): 2+ Psychiatric exam: Present: normal affect, normal mood Skin exam: Present: warm, dry, intact, normal color. Absent: rash Course Vital Signs 02/22/19 16:52 Temperature 98.1 F Pulse Rate 65 Respiratory 18 Rate Blood Pressure 166/60 O2 Sat by Pulse 95 Oximetry EKG Findings - EKG Comments: EKG Findings:: EKG obtained at 1906 shows sinus bradycardia with sinus arrhythmia, right bundle branch block, ventricular rate of 57, FL interval 206, QRS duration 130, QTC 420, QTC 408. No evidence of ST elevation or depression. Medical Decision Making - Medical Decision Making 64-year-old male patient presents to the emergency department today for evaluati on with multiple complaints. Patient is reporting increased low back pain after a fall 2 weeks ago. Patient states today he was unable to walk. States he did have an episode where his legs lost feeling and were paralyzed. He states this lasted for a short period. States that he has been unable to ambulate for the second half of the day. Did have to call ambulance to be brought in. Denied lo ss of bowel or bladder control. Denied saddle anesthesia. Physical examination did reveal decreased strength to the lower extremities. Patellar reflexes were intact. Normal Babinski. Sensation intact to the lower extremities. Rectal tone was decreased. X-rays were obtained and showed no acute abnormalities, did show some chronic degenerative changes. Labs reviewed and are unremarkable. Given patient's inability to ambulate with decreased rectal tone there is concern that he may require neurosurgery intervention. is requesting transfer to [facility]. I did discuss the case with Dr. Hirsch in the emergency department, he accepts transfer. - Lab Data Result diagrams: 02/22/19 18:14 02/22/19 18:14 Lab Results 02/22/19 02/22/19 02/22/19 Range/Units 18:14 18:14 18:14 WBC 9.0 (3.8-10.6) k/uL RBC 4.43 (4.30-5.90) m/uL Hgb 14.7 (13.0-17.5) gm/dL Hct 44.5 (39.0-53.0) % MCV 100.4 H (80.0-100.0) fL MCH 33.3 (25.0-35.0) pg MCHC 33.1 (31.0-37.0) g/dL RDW 12.1 (11.5-15.5) % Plt Count 156 (150-450) k/uL Neutrophils % 73 % Lymphocytes % 18 % Monocytes % 5 % Eosinophils % 1 % Basophils % 1 % Neutrophils # 6.6 (1.3-7.7) k/uL Lymphocytes # 1.6 (1.0-4.8) k/uL Monocytes # 0.5 (0-1.0) k/uL Eosinophils # 0.1 (0-0.7) k/uL Basophils # 0.1 (0-0.2) k/uL PT (9.0-12.0) sec INR (<1.2) APTT (22.0-30.0) sec Sodium 138 (137-145) mmol/L Potassium 4.1 (3.5-5.1) mmol/L Chloride 102 (98-107) mmol/L Carbon Dioxide 27 (22-30) mmol/L Anion Gap 9 mmol/L BUN 18 (9-20) mg/dL Creatinine 0.59 L (0.66-1.25) mg/dL Est GFR (CKD-EPI)AfAm >90 (>60 ml/min/1.73 sqM) Est GFR (CKD-EPI)NonAf >90 (>60 ml/min/1.73 sqM) Glucose 91 (74-99) mg/dL Plasma Lactic Acid Sebas 1.0 (0.7-2.0) mmol/L Calcium 9.8 (8.4-10.2) mg/dL Magnesium 2.0 (1.6-2.3) mg/dL Total Bilirubin 1.2 (0.2-1.3) mg/dL AST 45 (17-59) U/L ALT 31 (21-72) U/L Alkaline Phosphatase 58 (38-126) U/L Troponin I (0.000-0.034) ng/mL NT-Pro-B Natriuret Pep pg/mL Total Protein 6.9 (6.3-8.2) g/dL Albumin 4.3 (3.5-5.0) g/dL TSH 0.338 L (0.465-4.680) mIU/L Free T4 1.00 (0.78-2.19) ng/dL Urine Color Urine Appearance (Clear) Urine pH (5.0-8.0) Ur Specific [place] (1.001-1.035) Urine Protein (Negative) Urine Glucose (UA) (Negative) Urine Ketones (Negative) Urine Blood (Negative) Urine Nitrite (Negative) Urine Bilirubin (Negative) Urine Urobilinogen (<2.0) mg/dL Ur Leukocyte Esterase (Negative) 02/22/19 02/22/19 02/22/19 Range/Units 18:14 18:14 18:14 WBC (3.8-10.6) k/uL RBC (4.30-5.90) m/uL Hgb (13.0-17.5) gm/dL Hct (39.0-53.0) % MCV (80.0-100.0) fL MCH (25.0-35.0) pg MCHC (31.0-37.0) g/dL RDW (11.5-15.5) % Plt Count (150-450) k/uL Neutrophils % % Lymphocytes % % Monocytes % % Eosinophils % % Basophils % % Neutrophils # (1.3-7.7) k/uL Lymphocytes # (1.0-4.8) k/uL Monocytes # (0-1.0) k/uL Eosinophils # (0-0.7) k/uL Basophils # (0-0.2) k/uL PT 9.8 (9.0-12.0) sec INR 0.9 (<1.2) APTT 25.7 (22.0-30.0) sec Sodium (137-145) mmol/L Potassium (3.5-5.1) mmol/L Chloride (98-107) mmol/L Carbon Dioxide (22-30) mmol/L Anion Gap mmol/L BUN (9-20) mg/dL Creatinine (0.66-1.25) mg/dL Est GFR (CKD-EPI)AfAm (>60 ml/min/1.73 sqM) Est GFR (CKD-EPI)NonAf (>60 ml/min/1.73 sqM) Glucose (74-99) mg/dL Plasma Lactic Acid Sebas (0.7-2.0) mmol/L Calcium (8.4-10.2) mg/dL Magnesium (1.6-2.3) mg/dL Total Bilirubin (0.2-1.3) mg/dL AST (17-59) U/L ALT (21-72) U/L Alkaline Phosphatase (38-126) U/L Troponin I <0.012 (0.000-0.034) ng/mL NT-Pro-B Natriuret Pep pg/mL Total Protein (6.3-8.2) g/dL Albumin (3.5-5.0) g/dL TSH (0.465-4.680) mIU/L Free T4 (0.78-2.19) ng/dL Urine Color Light Yellow Urine Appearance Clear (Clear) Urine pH 8.0 (5.0-8.0) Ur Specific [place] 1.012 (1.001-1.035) Urine Protein Negative (Negative) Urine Glucose (UA) Negative (Negative) Urine Ketones 1+ H (Negative) Urine Blood Negative (Negative) Urine Nitrite Negative (Negative) Urine Bilirubin Negative (Negative) Urine Urobilinogen <2.0 (<2.0) mg/dL Ur Leukocyte Esterase Negative (Negative) 02/22/19 Range/Units 18:14 WBC (3.8-10.6) k/uL RBC (4.30-5.90) m/uL Hgb (13.0-17.5) gm/dL Hct (39.0-53.0) % MCV (80.0-100.0) fL MCH (25.0-35.0) pg MCHC (31.0-37.0) g/dL RDW (11.5-15.5) % Plt Count (150-450) k/uL Neutrophils % % Lymphocytes % % Monocytes % % Eosinophils % % Basophils % % Neutrophils # (1.3-7.7) k/uL Lymphocytes # (1.0-4.8) k/uL Monocytes # (0-1.0) k/uL Eosinophils # (0-0.7) k/uL Basophils # (0-0.2) k/uL PT (9.0-12.0) sec INR (<1.2) APTT (22.0-30.0) sec Sodium (137-145) mmol/L Potassium (3.5-5.1) mmol/L Chloride (98-107) mmol/L Carbon Dioxide (22-30) mmol/L Anion Gap mmol/L BUN (9-20) mg/dL Creatinine (0.66-1.25) mg/dL Est GFR (CKD-EPI)AfAm (>60 ml/min/1.73 sqM) Est GFR (CKD-EPI)NonAf (>60 ml/min/1.73 sqM) Glucose (74-99) mg/dL Plasma Lactic Acid Sebas (0.7-2.0) mmol/L Calcium (8.4-10.2) mg/dL Magnesium (1.6-2.3) mg/dL Total Bilirubin (0.2-1.3) mg/dL AST (17-59) U/L ALT (21-72) U/L Alkaline Phosphatase (38-126) U/L Troponin I (0.000-0.034) ng/mL NT-Pro-B Natriuret Pep 328 pg/mL Total Protein (6.3-8.2) g/dL Albumin (3.5-5.0) g/dL TSH (0.465-4.680) mIU/L Free T4 (0.78-2.19) ng/dL Urine Color Urine Appearance (Clear) Urine pH (5.0-8.0) Ur Specific [place] (1.001-1.035) Urine Protein (Negative) Urine Glucose (UA) (Negative) Urine Ketones (Negative) Urine Blood (Negative) Urine Nitrite (Negative) Urine Bilirubin (Negative) Urine Urobilinogen (<2.0) mg/dL Ur Leukocyte Esterase (Negative) Disposition Clinical Impression: Low back pain, Lower extremity edema, Lower extremity weakness Disposition: OTHER INSTITUTION NOT DEFINED Condition: Serious Referrals: Navid Pompa MD [Primary Care Provider] - 1-2 days - Out of Hospital Transfer - Req. Specs Out of Hospital Transfer - Requested Specifics: Other Emergency Center ([facility])
[2019-02-22 18:27] LABS: Appearance,Urine Clear (Clear); Bilirubin,Urine Negative (Negative); Blood,Urine Negative (Negative); Color,Urine Light Yellow; Glucose,Urine (UA) Negative (Negative); Ketones,Urine 1+ (Negative); Leukocyte Esterase,Urine Negative (Negative); Nitrite,Urine Negative (Negative); Protein,Urine Negative (Negative); Specific Gravity,Urine 1.012 (1.001-1.035); Urobilinogen,Urine <2.0 mg/dL (<2.0)
[2019-02-22 18:28] LABS: Basophils # (A) 0.1 k/uL (0-0.2); Basophils % (A) 1 %; Eosinophils # (A) 0.1 k/uL (0-0.7); Eosinophils % (A) 1 %; HCT 44.5 % (39.0-53.0); HGB 14.7 gm/dL (13.0-17.5); Lymphocytes # (A) 1.6 k/uL (1.0-4.8); Lymphocytes % (A) 18 %; MCH 33.3 pg (25.0-35.0); MCHC 33.1 g/dL (31.0-37.0); MCV 100.4 fL (80.0-100.0); Mean Platelet Volume 7.1; Monocytes # (A) 0.5 k/uL (0-1.0); Monocytes % (A) 5 %; Neutrophils # (A) 6.6 k/uL (1.3-7.7); Neutrophils % (A) 73 %; Platelet Count 156 k/uL (150-450); RBC 4.43 m/uL (4.30-5.90); RDW 12.1 % (11.5-15.5)
[2019-02-22 18:34] LABS: INR 0.9 (<1.2); Partial Thromboplastin Time 25.7 sec (22.0-30.0); Prothrombin Time 9.8 sec (9.0-12.0)
[2019-02-22 18:38] LABS: ALT 31 U/L (21-72); AST 45 U/L (17-59); African American GFR (CKD) >90 (>60 ml/min/1.73 sqM); Albumin 4.3 g/dL (3.5-5.0); Alkaline Phosphatase 58 U/L (38-126); Anion Gap 9 mmol/L; Blood Urea Nitrogen 18 mg/dL (9-20); Calcium 9.8 mg/dL (8.4-10.2); Carbon Dioxide 27 mmol/L (22-30); Chloride 102 mmol/L (98-107); Glucose 91 mg/dL (74-99); Potassium 4.1 mmol/L (3.5-5.1); Sodium 138 mmol/L (137-145); Total Bilirubin 1.2 mg/dL (0.2-1.3); Total Protein 6.9 g/dL (6.3-8.2)
--- NOTE | 2019-02-22 18:55 | XR ---
EXAMINATION TYPE: XR thoracic spine complete DATE OF EXAM: 02/22/2019 COMPARISON: None HISTORY: Thoracic spine, weakness for one week prior TECHNIQUE: 3 views thoracic spine FINDINGS: 12 thoracic type vertebral bodies. Pedicles are intact. Mild spondylosis within the lower f acet spine. Vertebral body heights are preserved. Alignment is normal. IMPRESSION: 1. Mild degenerative changes. No acute posttraumatic change is evident.
[2019-02-22] MEDS ORDERED: METHOCARBAMOL 500 MG TAB PO STA (18:56)
--- NOTE | 2019-02-22 18:56 | XR ---
EXAMINATION TYPE: XR lumbosacral spine min 4V DATE OF EXAM: 02/22/2019 COMPARISON: None HISTORY: Weakness fall one week prior back pain TECHNIQUE: 5 views lumbar spine FINDINGS: Asked her calcifications within the aorta. There is narrowing of disc height L5-S1 and mild narrowing at L4-5. Vertebral body heights are preserved. Spondylosis is present. Mild diffuse facet degenerative changes are present bilaterally. No spondylolytic defects are evident. There are 5 lumba r-type vertebral bodies. The pedicles are intact. IMPRESSION: 1. Mild degenerative changes greater in the lower lumbar spine. 2. No acute osseous abnormality.
--- NOTE | 2019-02-22 18:57 | XR ---
EXAMINATION TYPE: XR chest 2V DATE OF EXAM: 02/22/2019 COMPARISON: None INDICATION: Weakness, fall TECHNIQUE: Frontal and lateral views of the chest are obtained. FINDINGS: The heart size is normal. The pulmonary vasculature is normal. The lungs are clear. No pneumothorax is evident. IMPRESSION: 1. No acute pulmonary process.
[2019-02-22] MEDS ORDERED: HYDROcodone/APAP 10-325MG 1 EACH TAB PO ONE (22:16)
[2019-02-22] MEDS ORDERED: NICOTINE 21MG/24HR PATCH TRANSDERM STA (22:16)
[2019-02-22 22:31] VITALS: BP 159/67; PULSE 73; RESP 20; TEMP 97.9
== END 2019-02-22 22:49 | disposition short-term general hospital (02) ==
LOC: EC 16:39
DX: M54.5 Low back pain (principal); R60.0 Localized edema; R29.898 Other symptoms and signs involving the musculoskeletal system; M47.814 Spondylosis without myelopathy or radiculopathy, thoracic region; M47.816 Spondylosis without myelopathy or radiculopathy, lumbar region; K62.89 Other specified diseases of anus and rectum; M54.6 Pain in thoracic spine; M79.604 Pain in right leg; M25.561 Pain in right knee; R20.0 Anesthesia of skin; R20.2 Paresthesia of skin; R53.1 Weakness; R41.0 Disorientation, unspecified; M79.605 Pain in left leg; R63.0 Anorexia; J45.909 Unspecified asthma, uncomplicated; I10 Essential (primary) hypertension; F17.200 Nicotine dependence, unspecified, uncomplicated; Z88.0 Allergy status to penicillin; Z79.51 Long term (current) use of inhaled steroids; Z79.891 Long term (current) use of opiate analgesic; Z79.899 Other long term (current) drug therapy; Z85.828 Personal history of other malignant neoplasm of skin; Z91.81 History of falling; Z98.890 Other specified postprocedural states
CPT/HCPCS: 36415; 93005; 84439; 83880; 80053; 84443; 83605; 83735; 84484; 85025; 85610; 85730; 81003; 72072; 72110; 71046; 99285; 96374; 96375; 96361 ×3; S4990; J1885; J1170